=== PATIENT | male | born 1960 | race Caucasian/White ===

== ENCOUNTER 2019-08-09 20:42 | Inpatient (IN) | payer OTHER ==
--- NOTE | 2019-08-09 21:47 | PDOC ---
History of Present Illness - History of Present Illness Initial Comments: 08/09/19 22:12 HPI: 59 y/o M with hx of HTN, DM, cirrhosis (?ECHEVERRIA; according to patient it is due to fatty liver) presenting with 3 episodes of hematemesis that started 1hour prior to presentation. Patient stateshe was feeling abdominal discomfort and bloating but was able to tolerate dinner. After dinner, however, he had further discomfort and had 3 consecutive hematemesis episodes of large volume bright red blood without clots. He noted his dinner content also came up. He also reports sharp epigastric abd pain that radiates to the rest of his abdomen. He reports ALVES and LH following the hematemesis and his family reports he appears pale. He reports never having hematemesis before, but did receive extensive workup for his cirrhosis last year with Dr Chapman at [facility]. He denies any chest pain, SOB, syncope. Dr Chapman was contacted and we were notified that patient is MELD 6 and was recommended for transplant. He also states at the time of the EGD in 12/2017 there were 3 columns of nonbleeding and stable varices. Patient then missed several appointments and was lost to followup. Patient reports insurance issues PMHx: as noted above ROS: as noted SHx: Denies tobacco use; no alcohol use; no rec drugs Allergies: NKDA ROS: GENERAL/CONSTITUTIONAL: No fever or chills. +generalized weakness. HEAD, EYES, EARS, NOSE AND THROAT: No change in vision. No ear pain or discharge. No sore throat. CARDIOVASCULAR: No chest pain or shortness of breath RESPIRATORY: No cough, wheezing, or hemoptysis. GASTROINTESTINAL: +nausea and hematemesis; no diarrhea or constipation. GENITOURINARY: No dysuria, frequency, or change in urination. MUSCULOSKELETAL: No joint or muscle swelling or pain. No neck or back pain. SKIN: No rash NEUROLOGIC: +headache; no vertigo, loss of consciousness, or change in strength/ sensation. ENDOCRINE: No increased thirst. No abnormal weight change HEMATOLOGIC/LYMPHATIC: No anemia, easy bleeding, or history of blood clots. ALLERGIC/IMMUNOLOGIC: No hives or skin allergy. PE: GENERAL: Awake, alert, and fully oriented, moderate acute distress HEAD: No signs of trauma, normocephalic, atraumatic EYES: EOMI, scleral icterus, conjunctival pallor ENT: Auricles normal inspection, hearing grossly normal, nares patent, oropharynx clear without exudates. Moist mucosa. Sublingual jaundice NECK: Normal ROM, no lymphadenopathy LUNGS: No increased work of breathing, symmetrical chest rise, clear to auscultation bilaterally, no wheezes, crackles or rhonchi HEART: tachycardic and regular rhythm, normal S1 and S2, no murmurs, peripheral pulses 2+ and equal bilaterally. ABDOMEN: Soft, distended and protuberant abdomen w/ +fluid wave, generalized ttp with most focal in epigastrium with guarding, normoactive bowel sounds. No rebound. No masses. No CVAT EXTREMITIES: Normal inspection, Normal range of motion, no edema. No clubbing or cyanosis. NEUROLOGICAL: Cranial nerves II through XII grossly intact. Normal speech, normal gait, no focal sensorimotor deficits SKIN: jaundice and pallor <Yanely Dominique - Last Filed: 08/10/19 00:36> <Arlene Trejo - Last Filed: 08/19/19 02:51> - General Chief Complaint: Vomiting Blood Stated Complaint: VOMITING BLOOD Time Seen by Provider: 08/09/19 20:51 Past History - Past Medical History Anemia: Yes COPD: No Diabetes: Yes HTN: Yes Other medical history: Cirrhosis - Immunization History Immunization Up to Date: Yes - Psycho Social/Smoking Cessation Hx Smoking History: Never smoked Information on smoking cessation initiated: No Hx Alcohol Use: No Drug/Substance Use Hx: No <Yanely Dominique - Last Filed: 08/10/19 00:36> <Arlene Trejo - Last Filed: 08/19/19 02:51> - Past Medical History Allergies/Adverse Reactions: Allergies Allergy/AdvReac Type Severity Reaction Status Date / Time No Known Allergies Allergy Verified 08/09/19 21:48 *Physical Exam - Vital Signs Last Vital Signs Temp Pulse Resp BP Pulse Ox 98.7 F 104 H 20 103/72 97 08/09/19 21:04 08/09/19 21:04 08/09/19 21:04 08/09/19 21:04 08/09/19 21:04 <Yanely Dominique - Last Filed: 08/10/19 00:36> - Vital Signs Last Vital Signs Temp Pulse Resp BP Pulse Ox 98.4 F 73 20 109/74 95 08/15/19 14:00 08/15/19 14:00 08/15/19 14:00 08/15/19 14:00 08/12/19 21:00 <Arlene Trejo - Last Filed: 08/19/19 02:51> ED Treatment Course - LABORATORY CBC & Chemistry Diagram: 08/09/19 21:45 08/09/19 21:45 - RADIOLOGY Radiology Studies Ordered: Category Date Time Status CXRPORT [CHEST X-RAY PORTABLE*] [RAD] Stat Radiology 08/09/19 21:24 Ordered <Yanely Dominique - Last Filed: 08/10/19 00:36> - LABORATORY CBC & Chemistry Diagram: 08/15/19 07:07 08/15/19 07:07 - ADDITIONAL ORDERS Additional order review: 08/09/19 08/09/19 23:18 21:45 RBC 3.63 L MCV 68.8 L MCHC 29.2 L RDW 18.8 H MPV 9.6 Neutrophils % 78.3 Lymphocytes % 13.5 Monocytes % 7.1 Eosinophils % 0.5 Basophils % 0.6 POC Glucometer 244 - Medications Given in the ED: ED Medications Discontinued Medications Generic Name Dose Route Start Last Admin Trade Name Freq PRN Reason Stop Dose Admin Octreotide Acetate 200 mcg/ 500 mls @ 20.833 mls/hr 08/09/19 23:00 08/10/19 22:57 Octreotide Acetate 1,000 mcg/ IVPB 20.833 mls/hr Dextrose ASDIR SHADI Administration Lactated Ringer's 1,000 ml in 1,000 mls @ 125 mls/hr 08/09/19 23:45 08/11/19 00:03 Lactated Ringers Solution IV 125 mls/hr ASDIR SHADI Administration Propofol 1,000,000 mcg in 100 mls @ 4.899 mls/hr 08/10/19 02:30 08/10/19 14: 00 Diprivan - IVPB 0 mcg/kg/min TITR SHADI 0 mls/hr Titration Protocol 10 MCG/KG/MIN Dextrose/Lactated Ringer's 1,000 mls @ 42 mls/hr 08/10/19 02:45 08/10/19 03: 21 D5-Lr - IV Not Given ASDIR SHADI Ceftriaxone Sodium 1 gm/ 50 mls @ 100 mls/hr 08/10/19 08:00 08/11/19 10:42 Dextrose IVPB 100 mls/hr DAILY SHADI Administration Protocol Ceftriaxone Sodium 1 gm/ 50 mls @ 100 mls/hr 08/12/19 10:00 08/14/19 10:22 Dextrose IVPB 100 mls/hr DAILY SHADI Administration Protocol Lactated Ringer's 1,000 ml in 1,000 mls @ 125 mls/hr 08/11/19 15:00 08/13/19 06:26 Lactated Ringers Solution IV 125 mls/hr ASDIR SHADI Administration Octreotide Acetate 200 mcg/ 500 mls @ 20.833 mls/hr 08/11/19 16:30 08/13/19 17:46 Octreotide Acetate 1,000 mcg/ IVPB 20.833 mls/hr Dextrose ASDIR SHADI Administration Magnesium Sulfate/Dextrose 1 gm 08/10/19 08:30 08/10/19 09:23 Magnesium 1gm/D5w - IVPB 08/10/19 08:31 1 gm ONCE ONE Administration Octreotide Acetate 50 mcg 08/09/19 22:48 08/09/19 23:47 Sandostatin - IVPUSH 08/09/19 22:49 50 mcg ONCE ONE Administration Ondansetron HCl 4 mg 08/09/19 22:03 08/09/19 22:14 Zofran Injection IVPUSH 08/09/19 22:04 4 mg ONCE ONE Administration Ondansetron HCl 4 mg 08/10/19 14:43 08/10/19 16:45 Zofran Injection IVPUSH 08/10/19 14:44 4 mg ONCE ONE Administration Pantoprazole Sodium 40 mg 08/09/19 22:42 08/09/19 23:28 Protonix Iv IVPUSH 08/09/19 22:43 40 mg ONCE ONE Administration Pantoprazole Sodium 40 mg 08/10/19 10:00 08/11/19 10:44 Protonix Iv IVPUSH 40 mg BID SHADI Administration Pantoprazole Sodium 40 mg 08/11/19 22:00 08/15/19 10:31 Protonix Iv IVPUSH 40 mg BID SHADI Administration Phytonadione 10 mg 08/11/19 17:17 08/11/19 18:48 Aqua Mephyton Injection - IVPB 08/11/19 17:18 10 mg ONCE ONE Administration Potassium Chloride 40 meq 08/14/19 10:30 08/14/19 12:14 Potassium Chloride Oral Liquid PO 08/14/19 10:31 40 meq ONCE ONE Administration Zolpidem Tartrate 5 mg 08/14/19 00:32 08/14/19 00:51 Ambien - PO 08/14/19 00:33 5 mg ONCE ONE Administration Zolpidem Tartrate 5 mg 08/14/19 22:24 08/14/19 22:48 Ambien - PO 08/14/19 22:25 5 mg ONCE ONE Administration <Arlene Trejo - Last Filed: 08/19/19 02:51> Medical Decision Making - Medical Decision Making 08/10/19 00:30 59 y/o M with hx of HTN, DM, cirrhosis (?CEHEVERRIA; according to patient it is due to fatty liver) presenting with 3 episodes of hematemesis that started 1hour prior to presentation associated with abdominal pain and nausea. BP 103/72 HR 104, AF. PE notable for jaundice, conjunctival pallor, epigastric tenderness -cbc, cmp, coags, t&s, ammonia, lipase, ekg, cxr -protonix 40mg, octreotide 50mcg, octreotide drip, 1L LR, zofran 08/10/19 00:36 Hb 7.3, plt 82, INR 1.37, hemoccult positive ekg: nsr cxr: no acute pathology will transfuse 2 units pRBC consulted GI Dr Gar for emergent EGD for active bleeding 08/10/19 00:37 GI team, anesthesia, and OR mobilized Patient admitted to ICU under Dr Ibarra; ICU team accepted patient Family made aware and in agreement with plan; all questions answered <Yanely Dominique - Last Filed: 08/10/19 00:36> Discharge - Discharge Information Problems reviewed: Yes - Admission Yes <Yanely Dominique - Last Filed: 08/10/19 00:36> <Arlene Trejo - Last Filed: 08/19/19 02:51> - Discharge Information Clinical Impression/Diagnosis: Esophageal varix bleeding Qualifiers: Esophageal varices type: secondary Qualified Code(s): I85.11 - Secondary esophageal varices with bleeding Abdominal pain Qualifiers: Abdominal location: epigastric Qualified Code(s): R10.13 - Epigastric pain Condition: Stable Disposition: HOME
[2019-08-09] MEDS ORDERED: ONDANSETRON 4 MG/2 ML VIAL IVPUSH ONE (22:03)
[2019-08-09] MEDS ORDERED: ONDANSETRON 4 MG/2 ML VIAL ONE (22:07)
[2019-08-09 22:23] LABS: INR 1.37 (0.83-1.09); PROTHROMBIN TIME (PATIENT) 16.2 SEC (9.7-13.0)
[2019-08-09 22:30] LABS: MAGNESIUM 1.5 mg/dL (1.8-2.4)
[2019-08-09 22:38] LABS: ALBUMIN 3.3 g/dl (3.4-5.0); BILIRUBIN,TOTAL 0.6 mg/dL (0.2-1); CALCIUM 8.5 mg/dL (8.5-10.1); CREATININE 1.1 mg/dL (0.55-1.3); POTASSIUM 4.4 mmol/L (3.5-5.1)
[2019-08-09] MEDS ORDERED: PANTOPRAZOLE SODIUM 40 MG VIAL IVPUSH ONE (22:42)
[2019-08-09 22:44] LABS: BASO % 0.6 % (0-2.0); EOS % 0.5 % (0-4.5); HEMOGLOBIN 7.3 GM/dL (11.7-16.9); LYMPH % 13.5 % (8-40); MCH 20.1 pg (25.7-33.7); MCHC 29.2 g/dl (32.0-35.9); MEAN CELL VOLUME 68.8 fl (80-96); MEAN PLT VOLUME 9.6 fl (7.5-11.1); MONO % 7.1 % (3.8-10.2); NEUT % 78.3 % (42.8-82.8); PLATELET COUNT 82 K/MM3 (134-434); RBC 3.63 M/mm3 (4.00-5.60); RDW 18.8 % (11.9-15.9); WHITE BLOOD COUNT 7.6 K/mm3 (4.0-10.0)
[2019-08-09] MEDS ORDERED: OCTREOTIDE ACETATE 50 MCG/1 ML - 1 ML VIAL IVPUSH ONE (22:48)
[2019-08-09] MEDS ORDERED: PANTOPRAZOLE SODIUM 40 MG VIAL ONE (23:22)
--- NOTE | 2019-08-09 23:29 | PDOC ---
Documentation entered by Ernestina Nation SCRIBE, acting as scribe for Arlene Trejo MD. Arlene Trejo MD: This documentation has been prepared by the sheribe, Ernestina Nation SCRIBE, under my direction and personally reviewed by me in its entirety. I confirm that the documentation accurately reflects all work, treatment, procedures, and medical decision making performed by me. Attending Attestation - Resident Resident Name: TripYanely luz - ED Attending Attestation I have performed the following: I have examined & evaluated the patient, The case was reviewed & discussed with the resident, I agree w/resident's findings & plan, Exceptions are as noted - HPI HPI: 08/09/19 21:23 59 yo male BIBA after 3 episodes of hematemesis one hour prior to arrival. He had some epigastric pain , belching and nausea. - Physicial Exam PE: 08/09/19 21:26 59 yo male appearing pale BIBA after vomiting blood head ncat conjunctiva pale neck supple lungs cta b/l cvs tachycardia abd no rebound,+fluid wave skin warm and dry neuro axox3 08/09/19 22:44 08/09/19 23:10 - Medical Decision Making 08/09/19 23:14 59-year-old male presents after 3 episodes of hematemesis He has a history of cirrhosis, prior GI bleeds with transfusions and is followed by Dr. Leiva at [facility] We did speak to Dr. Leiva his GI doctor and he recommended that we speak to our GI specialist propulsion motor and generator repairer this evening We did speak to Dr. Darin Gar and he will see the patient this evening for endoscopy Patient will require blood transfusions, PPI, octreotide infusion 08/09/19 23:28
[2019-08-09 23:31] LABS: ANISOCYTOSIS 1+; PLATELET ESTIMATE DECREASED
[2019-08-09] MEDS ORDERED: OCTREOTIDE ACETATE 100 MCG/1 ML ONE (23:33)
[2019-08-10] MEDS: LACTATED RINGERS SOLUTION 1,000 ML/1,000 ML INFUS.BAG IV SCH ×2 (00:02→06:10)
[2019-08-10] MEDS: OCTREOTIDE ACETATE 200 MCG, OCTREOTIDE ACETATE 1,000 MCG in DEXTROSE 5%-WATER - 496 ML IVPB SCH ×2 (00:20→22:57)
[2019-08-10] MEDS ORDERED: EPINEPHrine 1:10,000 (P-F SYR) 1 MG/10 ML DISP.SYRIN ONE (00:31)
[2019-08-10] MEDS ORDERED: ROCURONIUM BROMIDE 50 MG/5 ML VIAL ONE (00:32)
[2019-08-10] MEDS ORDERED: fentaNYL CITRATE 250 MCG/5 ML VIAL ONE (00:32)
[2019-08-10] MEDS ORDERED: MIDAZOLAM HCL 2 MG/2 ML SINGLE DOSE VIAL ONE ×2 (00:32)
[2019-08-10] MEDS ORDERED: PROPOFOL 2,000,000 MCG/200 ML VIAL ONE (01:59)
--- NOTE | 2019-08-10 02:22 | HP ---
Admitting History and Physical - Primary Care Physician PCP: Dr. Ibarra - Admission Chief Complaint: voimting blood History of Present Illness: 59 year old male with PMHX of HTN, DM, cirrhosis 2/2 ECHEVERRIA, according to ED presenting with 3 episodes of hematemesis that started 1hour prior to arrival. Patient was feeling abdominal discomfort and bloating but was able to tolerate dinner. After dinner, however, further discomfort and had 3 consecutive hematemesis episodes of large volume bright red blood without clots. Patient reported sharp epigastric abdominal pain that radiates to the rest of his abdomen, vomiting. Patient reported ALVES and lightheadedness after hematemesis. Patient denied any chest pain, SOB, syncope. Patient reports never having hematemesis before, but did receive extensive workup for his cirrhosis last year with Dr Chapman at [facility]. Dr Chapman contacted in ED and we were notified that patient is MELD 6 and was recommended for transplant. He also states at the time of the EGD in 12/2017 there were 3 columns of nonbleeding and stable varices. Patient then missed several appointments and was lost to followup. Patient reports insurance issues - Smoking History Smoking history: Never smoked - Alcohol/Substance Use Hx Alcohol Use: No Home Medications - Allergies Allergies/Adverse Reactions: Allergies Allergy/AdvReac Type Severity Reaction Status Date / Time No Known Allergies Allergy Verified 08/09/19 21:48 Family Medical History Family History: Unable to Obtain (patient intubated/sedated upon exam s/p emergent EGD ) Review of Systems Unable to obtain ROS, reason: patient intubated/sedated Physical Examination Vital Signs: Vital Signs Temperature 98.7 F 08/09/19 21:04 Pulse Rate 94 H 08/09/19 23:40 Respiratory Rate 08/10/19 01:56 Blood Pressure 108/68 08/09/19 23:40 O2 Sat by Pulse Oximetry (%) 97 08/09/19 23:40 Constitutional: Yes: Obese HENT: Yes: Atraumatic, Normocephalic, Other (intubated, sedated) Neck: Yes: Supple, Trachea Midline Cardiovascular: Yes: S1, S2 Respiratory: Yes: Regular, CTA Bilaterally Gastrointestinal: Yes: Normal Bowel Sounds, Soft, Abdomen, Obese Musculoskeletal: Yes: WNL Neurological: Yes: Other (sedated) Labs: CBC, BMP 08/09/19 21:45 08/09/19 21:45 Imaging - Results Chest X-ray: Report Reviewed (cxr: no acute pathology) Problem List - Problems (1) Esophageal varix bleeding Code(s): I85.01 - ESOPHAGEAL VARICES WITH BLEEDING Qualifiers: Esophageal varices type: secondary Qualified Code(s): I85.11 - Secondary esophageal varices with bleeding (2) Abdominal pain Code(s): R10.9 - UNSPECIFIED ABDOMINAL PAIN Qualifiers: Abdominal location: epigastric Qualified Code(s): R10.13 - Epigastric pain Assessment/Plan 59 year old male with PMHX of HTN, DM, cirrhosis, according to ED presenting with 3 episodes of hematemesis large volume bright red blood without clots and sharp epigastric abdominal pain that radiates to the rest of his abdomen Per [facility]. Dr Chapman patient MELD 6 and was recommended for transplant. EGD in 12/2017 there were 3 columns of nonbleeding and stable varices. Patient then missed several appointments and was lost to followup. Patient examined in ICU intubated and sedated s/p EGD and clipping of some varices, will remain in ICU pending repeat EGD in AM # Esophageal Varices bleeding # Anemia - Hgb:7.3, INR: 1.3 - occult blood positive - In ED protonix 40mg, octreotide 50mcg, octreotide drip, 1L LR, zofran - See by Dr. kim for emergent EGD, multiple bands placed along distal esophagus - EGD shows: Esophageal variceal bleeding - s/p intubation/sedation; post procedure to prevent aspiration - continue with LR IVF - continue with PPI and Octreotide drip - continue with pRbc 2 unit - follow up repeat cbc in AM - Transfuse for Hgb<7 - will need repeat EGD in AM - consider ceftriaxone abx for SBP/PPX # HTN - monitor BP - continue with IVF # DM - monitor BGM - coverage with Novolog sliding scale DIET: NPO VTE: SCD Visit type - Emergency Visit Emergency Visit: Yes ED Registration Date: 08/10/19 Care time: The patient presented to the Emergency Department on the above date and was hospitalized for further evaluation of their emergent condition. - New Patient This patient is new to me today: Yes Date on this admission: 08/10/19 - Critical Care Critical Care patient: Yes Total Critical Care Time (in minutes): 35 Critical Care Statement: The care of this patient involved high complexity decision making to prevent further life threatening deterioration of the patient 's condition and/or to evaluate & treat vital organ system(s) failure or risk of failure.
--- NOTE | 2019-08-10 02:40 | CONSULT ---
Consult Consult Specialty:: Pulm/CCM Reason for Consultation:: Variceal bleed with anemia, intubated for EGD - History of Present Illness Chief Complaint: Intubated and sedated History of Present Illness: 59 y/o M with hx of HTN, DM, cirrhosis2/2 ECHEVERRIA who presented to the ED with c/o 3 episodes of hematemesis that started 1hour prior to presentation to the ED. He is now intubated and sedated s/p EGD and banding of some varices. Pt is transferred to ICU and is to remain intubated for repeat EGD in am. Briefly as per previous report pt received extensive workup for his cirrhosis last year with Dr Chapman at [facility]. He had a MELD score of 6 and was recommended for transplant. EGD in 12/2017 was s/f 3 columns of nonbleeding and stable varices. He was lost to follow-up and had insurance issues. Patient reported 3 episodes of large volume hematemesis with bright red blood, with sharp radiating epigastric pain. He reported ALVES and lightheadedness after hematemesis but denied chest pain, syncope, SOB. this is his first episode of hematemesis. In the OR EGD and banding was limited by extensive food and blood in the stomach that kept refluxing up. Pt received 1uPRBC and 500cc LR. In ICU rec'd orally intubated and sedated to RASS-4. Abdomen was grossly distended, firm and dull to percussion. 2nd unit PRBC given. Maintained on LR 125cc/h. Started Propofol for vent synchrony. Updated using an annealing furnace tender. - History Source History Provided By: Medical Record Limitations to Obtaining History: Intubated - Past Medical History Cardio/Vascular: Yes: HTN Gastrointestinal: Yes: Esophageal Varices Hepatobiliary: Yes: Cirrhosis Heme/Onc: Yes: Anemia - Alcohol/Substance Use Hx Alcohol Use: No - Smoking History Smoking history: Never smoked - Social History Usual Living Arrangement: With Spouse Home Medications - Allergies Allergies/Adverse Reactions: Allergies Allergy/AdvReac Type Severity Reaction Status Date / Time No Known Allergies Allergy Verified 08/09/19 21:48 Family Medical History Family History: Unable to Obtain Review of Systems Unable to obtain ROS, reason: intubated and sedated Physical Exam Vital Signs: Vital Signs Temperature 98.7 F 08/09/19 21:04 Pulse Rate 94 H 08/09/19 23:40 Respiratory Rate 19 08/10/19 01:56 Blood Pressure 108/68 08/09/19 23:40 O2 Sat by Pulse Oximetry (%) 97 08/09/19 23:40 Constitutional: Yes: Well Nourished, No Distress, Calm Eyes: Yes: WNL, Conjunctiva Clear, PERRL HENT: Yes: Atraumatic, Normocephalic Neck: Yes: WNL, Supple, Trachea Midline Cardiovascular: Yes: Regular Rate and Rhythm, S1, S2 Respiratory: Yes: Regular, Intubated, Mechanically Ventilated, Rhonchi Gastrointestinal: Yes: Abdomen, Obese, Ascites, Distention, Hypoactive Bowel Sounds, Other (Dull) ...Rectal Exam: Yes: Deferred Renal/: Yes: Guzman Present Musculoskeletal: Yes: WNL Extremities: Yes: WNL Edema: No Peripheral Pulses WNL: Yes Neurological: Yes: Other (Sedated) Labs: CBC, BMP 08/09/19 21:45 08/09/19 21:45 Problem List - Problems (1) Abdominal pain Code(s): R10.9 - UNSPECIFIED ABDOMINAL PAIN Qualifiers: Abdominal location: epigastric Qualified Code(s): R10.13 - Epigastric pain (2) Esophageal varix bleeding Code(s): I85.01 - ESOPHAGEAL VARICES WITH BLEEDING Qualifiers: Esophageal varices type: secondary Qualified Code(s): I85.11 - Secondary esophageal varices with bleeding (3) Anemia Code(s): D64.9 - ANEMIA, UNSPECIFIED (4) Endotracheally intubated Code(s): Z97.8 - PRESENCE OF OTHER SPECIFIED DEVICES (5) Hematemesis Code(s): K92.0 - HEMATEMESIS Assessment/Plan 59 y/o M with hx of HTN, DM, cirrhosis 2/2 ECHEVERRIA c/b esophageal varices and ascites and now variceal bleed. He is now intubated and sedated s/p EGD and clipping of some varices. Pt is transferred to ICU and is to remain intubated for repeat EGD in am. Plan: GI/Heme: GI following; plan for repeat EGD in OR in am Maintain large bore IV access Cont octreotide drip Cont pantoprazole BID NPO Serial CBC Transfuse for Hgb<7, Plts<50 ID: f/u cultures Ceftriaxone for SBP prophylaxis Pulm: LTVV CXR Propofol drip for vent synchrony Aspiration precautions Pulm toilet CV: HD monitoring Cont IVF Hold antiHTN Endo: DM Fingersticks q6 Insulin sliding scale Proph: SCD/PPI Dionne Chirinos,ACNP Pulm/CCM [employer] 40mins
[2019-08-10] MEDS ORDERED: DEXTROSE 5%-LACTATED RINGERS 1,000 ML IV SCH (02:45)
[2019-08-10] MEDS: PROPOFOL 1,000,000 MCG/100 ML VIAL IVPB SCH ×2 (03:20→06:15)
[2019-08-10 06:58] LABS: HEMATOCRIT 28.2 % (35.4-49); HEMOGLOBIN 8.8 GM/dL (11.7-16.9); MCH 22.6 pg (25.7-33.7); MCHC 31.3 g/dl (32.0-35.9); MEAN CELL VOLUME 72.2 fl (80-96); MEAN PLT VOLUME 9.9 fl (7.5-11.1); PLATELET COUNT 81 K/MM3 (134-434); RBC 3.91 M/mm3 (4.00-5.60); RDW 20.8 % (11.9-15.9); WHITE BLOOD COUNT 8.4 K/mm3 (4.0-10.0)
[2019-08-10] MEDS ORDERED: INSULIN SLIDING SCALE (NOVOLOG) 1 VIAL SQ SCH (07:00)
[2019-08-10 07:33] LABS: INR 1.37 (0.83-1.09); PROTHROMBIN TIME (PATIENT) 16.2 SEC (9.7-13.0)
[2019-08-10 07:36] LABS: ACTIVATED PTT 33.5 SECONDS (25.2-36.5)
[2019-08-10] MEDS ORDERED: cefTRIAXone SODIUM 1 GM VIAL ONE ×2 (07:36→09:22)
[2019-08-10] MEDS: CEFTRIAXONE 1 GM in DEXTROSE 5%-WATER - 50 ML IVPB SCH (07:36)
[2019-08-10] MEDS ORDERED: DEXTROSE 5%-WATER - 50 ML IVPB ONE ×2 (07:36→09:22)
[2019-08-10 07:37] LABS: BILIRUBIN,TOTAL 1.5 mg/dL (0.2-1); BLOOD UREA NITROGEN 23.2 mg/dL (7-18); CALCIUM 7.8 mg/dL (8.5-10.1); CREATININE 1.3 mg/dL (0.55-1.3); MAGNESIUM 1.6 mg/dL (1.8-2.4); TOT PROT 6.6 g/dl (6.4-8.2)
[2019-08-10 08:10] LABS: URINE APPEARANCE CLEAR; URINE BILIRUBIN NEGATIVE (NEGATIVE); URINE COLOR YELLOW; URINE GLUCOSE (UA) 3+ (NEGATIVE); URINE KETONE 1+ (NEGATIVE); URINE LEUK ESTERASE NEGATIVE (NEGATIVE); URINE NITRITE NEGATIVE (NEGATIVE); URINE PROTEIN TRACE (NEGATIVE); URINE UROBILINOGEN 0.2 mg/dL (0.2-1.0)
[2019-08-10] MEDS ORDERED: MAGNESIUM 1GM/D5W 100ML - 100 ML IVPB IVPB ONE (08:30)
[2019-08-10 08:57] LABS: POTASSIUM 6.6 mmol/L (3.5-5.1)
--- NOTE | 2019-08-10 08:59 | PN.GI ---
GI Progress Note Subjective: Follow for hematemesis, EGD with banding yesterday. Presently intubated and sedated. NO melena or GI output since arrival in MICU. No hematemesis. No tachycardia or hypotension. - Objective Vital Signs: Vital Signs Temperature 98.6 F 08/10/19 06:00 Pulse Rate 90 08/10/19 06:00 Respiratory Rate 14 08/10/19 06:00 Blood Pressure 108/52 L 08/10/19 06:00 O2 Sat by Pulse Oximetry (%) 100 08/10/19 03:09 Gastrointestinal Inspection: Yes: Distention ...Auscultate: Yes: Normoactive Bowel Sounds ...Palpate: Yes: Soft. No: Hepatomegaly, Mass Labs: CBC, BMP 08/10/19 06:25 08/10/19 06:25 INR, PTT INR 1.37 (0.83-1.09) H 08/10/19 06:25 Assessment/Plan Probable variceal bleed with EBL last night and continues on Octreotide drip. No eveidence of rebleeding at this time with stable VSs, no melena or GI output either from above or below. Hemoblobin 8.8. Plan:Continue with Octerotide drip. Continue NPO for now. Repeat EGD. 2 large bore IVs. Keep hemoglobin 7-9. Do not overtransfuse.
[2019-08-10] MEDS: PANTOPRAZOLE SODIUM 40 MG VIAL IVPUSH SCH ×2 (09:23→22:57)
--- NOTE | 2019-08-10 10:03 | EKG ---
Test Reason : Blood Pressure : / mmHG Vent. Rate : 095 BPM Atrial Rate : 095 BPM P-R Int : 168 ms QRS Dur : 076 ms QT Int : 376 ms P-R-T Axes : 033 022 039 degrees QTc Int : 472 ms NORMAL SINUS RHYTHM NORMAL ECG NO PREVIOUS ECGS AVAILABLE Confirmed by ARISTIDES PARISH MD ([id number]) on 08/10/2019 10:02:32 AM Referred By: Confirmed By:ARISTIDES PARISH MD
[2019-08-10] MEDS ORDERED: KCL 10 MEQ IVPB 10 MEQ/100 ML INFUS.BAG IVPB SCH (11:00)
[2019-08-10 12:02] LABS: BLOOD UREA NITROGEN 23.4 mg/dL (7-18); CREATININE 1.1 mg/dL (0.55-1.3); POTASSIUM 4.6 mmol/L (3.5-5.1)
--- NOTE | 2019-08-10 12:23 | PN ---
Progress Note, Physician Chief Complaint: patient seen and examined intubated sedated to go for EGD today repeat labs pending - Current Medication List Current Medications: Active Medications Octreotide Acetate 200 mcg/Octreotide Acetate 1,000 mcg/Dextrose 500 mls @ 20.833 mls/hr IVPB ASDIR SHADI Last Admin: 08/10/19 00:20 Dose: 20.833 mls/hr Lactated Ringer's (Lactated Ringers Solution) 1,000 ml in 1,000 mls @ 125 mls/ hr IV ASDIR SHADI Last Admin: 08/10/19 06:10 Dose: 125 mls/hr Propofol (Diprivan -) 1,000,000 mcg in 100 mls @ 4.899 mls/hr IVPB TITR SHADI; Protocol Last Admin: 08/10/19 06:15 Dose: 40 mcg/kg/min, 19.595 mls/hr Ceftriaxone Sodium 1 gm/ (Dextrose) 50 mls @ 100 mls/hr IVPB DAILY SHADI; Protocol Last Admin: 08/10/19 07:36 Dose: 100 mls/hr Pantoprazole Sodium (Protonix Iv) 40 mg IVPUSH BID SHADI Last Admin: 08/10/19 09:23 Dose: 40 mg - Objective Vital Signs: Vital Signs Temperature 97.9 F 08/10/19 10:00 Pulse Rate 89 08/10/19 10:00 Respiratory Rate 16 08/10/19 10:00 Blood Pressure 109/79 08/10/19 10:00 O2 Sat by Pulse Oximetry (%) 100 08/10/19 03:09 Constitutional: Yes: Calm Neck: Yes: Other (intubated sedated) Cardiovascular: Yes: Regular Rate and Rhythm, S1, S2 Respiratory: Yes: Diminished, Mechanically Ventilated Gastrointestinal: Yes: Normal Bowel Sounds, Soft Labs: CBC, BMP 08/10/19 06:25 08/10/19 11:15 INR, PTT INR 1.37 (0.83-1.09) H 08/10/19 06:25 Problem List - Problems (1) Anemia Assessment/Plan: s/p prbc h/h impropved Code(s): D64.9 - ANEMIA, UNSPECIFIED (2) Esophageal varix bleeding Assessment/Plan: s/p banding octreotide drip repeat EGD today Code(s): I85.01 - ESOPHAGEAL VARICES WITH BLEEDING Qualifiers: Esophageal varices type: secondary Qualified Code(s): I85.11 - Secondary esophageal varices with bleeding (3) Hematemesis Assessment/Plan: octreotide drip monitor h/h Code(s): K92.0 - HEMATEMESIS (4) Hypomagnesemia Assessment/Plan: iv magnesium recheck labs Code(s): E83.42 - HYPOMAGNESEMIA
--- NOTE | 2019-08-10 12:38 | PN ---
Teaching Attending Note Name of Resident: Jalen Bang ATTENDING PHYSICIAN STATEMENT I saw and evaluated the patient. I reviewed the resident's note and discussed the case with the resident. I agree with the resident's findings and plan as documented. SUBJECTIVE: Patient seen and examined in the ICU. Intubated and sedated. AC Mode of vent. No pressors. Intake & Output 08/07/19 08/08/19 08/09/19 08/10/19 23:59 23:59 23:59 23:59 Intake Total 1284 Output Total 100 Balance 1184 Weight 180 lb 200 lb 6 oz Last Vital Signs Temp Pulse Resp BP Pulse Ox 97.9 F 91 H 15 115/83 100 08/10/19 10:00 08/10/19 12:00 08/10/19 12:00 08/10/19 12:00 08/10/19 03:09 Active Medications Octreotide Acetate 200 mcg/Octreotide Acetate 1,000 mcg/Dextrose 500 mls @ 20.833 mls/hr IVPB ASDIR SHADI Last Admin: 08/10/19 00:20 Dose: 20.833 mls/hr Lactated Ringer's (Lactated Ringers Solution) 1,000 ml in 1,000 mls @ 125 mls/ hr IV ASDIR SHADI Last Admin: 08/10/19 06:10 Dose: 125 mls/hr Propofol (Diprivan -) 1,000,000 mcg in 100 mls @ 4.899 mls/hr IVPB TITR SHADI; Protocol Last Admin: 08/10/19 06:15 Dose: 40 mcg/kg/min, 19.595 mls/hr Ceftriaxone Sodium 1 gm/ (Dextrose) 50 mls @ 100 mls/hr IVPB DAILY SHADI; Protocol Last Admin: 08/10/19 07:36 Dose: 100 mls/hr Pantoprazole Sodium (Protonix Iv) 40 mg IVPUSH BID SHADI Last Admin: 08/10/19 09:23 Dose: 40 mg Constitutional: Yes: Intubated and sedated Eyes: Yes: WNL, Conjunctiva Clear, PERRL HENT: Yes: Atraumatic, Normocephalic Neck: Yes: WNL, Supple, Trachea Midline Cardiovascular: Yes: Regular Rate and Rhythm, S1, S2 Respiratory: Yes: Intubated, Mechanically Ventilated, clear Gastrointestinal: Yes: Abdomen, Obese, Ascites, Distention, Hypoactive Bowel Sounds ...Rectal Exam: Yes: Deferred Renal/: Yes: Guzman Present Musculoskeletal: Yes: WNL Extremities: Yes: WNL Edema: No Peripheral Pulses WNL: Yes Neurological: Yes: Sedated Labs: Laboratory Results - last 24 hr 08/09/19 08/09/19 08/09/19 21:45 21:45 21:45 WBC 7.6 RBC 3.63 L Hgb 7.3 L Hct 25.0 L MCV 68.8 L MCH 20.1 L MCHC 29.2 L RDW 18.8 H Plt Count 82 L MPV 9.6 Absolute Neuts (auto) 6.0 Neutrophils % 78.3 Lymphocytes % 13.5 Monocytes % 7.1 Eosinophils % 0.5 Basophils % 0.6 Nucleated RBC % 0 Hypochromia 2+ Platelet Estimate Decreased Platelet Comment No clumping noted Anisocytosis 1+ PT with INR INR PTT (Actin FS) 26.8 Sodium Potassium Chloride Carbon Dioxide Anion Gap BUN Creatinine Est GFR (CKD-EPI)AfAm Est GFR (CKD-EPI)NonAf POC Glucometer Random Glucose Calcium Phosphorus Magnesium Total Bilirubin AST ALT Alkaline Phosphatase Ammonia 28.20 Creatine Kinase Troponin I Total Protein Albumin Lipase Urine Color Urine Appearance Urine pH Ur Specific [place] Urine Protein Urine Glucose (UA) Urine Ketones Urine Blood Urine Nitrite Urine Bilirubin Urine Urobilinogen Ur Leukocyte Esterase Stool Occult Blood Anti-A Titer Blood Type Antibody Screen Crossmatch 08/09/19 08/09/19 08/09/19 21:45 21:45 21:45 WBC RBC Hgb Hct MCV MCH MCHC RDW Plt Count MPV Absolute Neuts (auto) Neutrophils % Lymphocytes % Monocytes % Eosinophils % Basophils % Nucleated RBC % Hypochromia Platelet Estimate Platelet Comment Anisocytosis PT with INR INR PTT (Actin FS) Sodium 135 L Potassium 4.4 Chloride 104 Carbon Dioxide 21 Anion Gap 10 BUN 17.0 Creatinine 1.1 Est GFR (CKD-EPI)AfAm 85.31 Est GFR (CKD-EPI)NonAf 73.61 POC Glucometer Random Glucose 304 H Calcium 8.5 Phosphorus 2.6 Magnesium 1.5 L Total Bilirubin 0.6 AST 33 ALT 45 Alkaline Phosphatase 80 Ammonia Creatine Kinase 87 Troponin I 0.02 Total Protein 7.0 Albumin 3.3 L Lipase 142 Urine Color Urine Appearance Urine pH Ur Specific [place] Urine Protein Urine Glucose (UA) Urine Ketones Urine Blood Urine Nitrite Urine Bilirubin Urine Urobilinogen Ur Leukocyte Esterase Stool Occult Blood Anti-A Titer Blood Type Antibody Screen Crossmatch 08/09/19 08/09/19 08/09/19 21:45 21:45 21:45 WBC RBC Hgb Hct MCV MCH MCHC RDW Plt Count MPV Absolute Neuts (auto) Neutrophils % Lymphocytes % Monocytes % Eosinophils % Basophils % Nucleated RBC % Hypochromia Platelet Estimate Platelet Comment Anisocytosis PT with INR 16.20 H INR 1.37 H PTT (Actin FS) Sodium Potassium Chloride Carbon Dioxide Anion Gap BUN Creatinine Est GFR (CKD-EPI)AfAm Est GFR (CKD-EPI)NonAf POC Glucometer Random Glucose Calcium Phosphorus Magnesium Total Bilirubin AST ALT Alkaline Phosphatase Ammonia Creatine Kinase Troponin I Total Protein Albumin Lipase Urine Color Urine Appearance Urine pH Ur Specific [place] Urine Protein Urine Glucose (UA) Urine Ketones Urine Blood Urine Nitrite Urine Bilirubin Urine Urobilinogen Ur Leukocyte Esterase Stool Occult Blood Positive Anti-A Titer Cancelled Blood Type Cancelled Antibody Screen Cancelled Crossmatch 08/09/19 08/09/19 08/10/19 21:45 23:18 00:10 WBC RBC Hgb Hct MCV MCH MCHC RDW Plt Count MPV Absolute Neuts (auto) Neutrophils % Lymphocytes % Monocytes % Eosinophils % Basophils % Nucleated RBC % Hypochromia Platelet Estimate Platelet Comment Anisocytosis PT with INR INR PTT (Actin FS) Sodium Potassium Chloride Carbon Dioxide Anion Gap BUN Creatinine Est GFR (CKD-EPI)AfAm Est GFR (CKD-EPI)NonAf POC Glucometer 244 Random Glucose Calcium Phosphorus Magnesium Total Bilirubin AST ALT Alkaline Phosphatase Ammonia Creatine Kinase Troponin I Total Protein Albumin Lipase Urine Color Urine Appearance Urine pH Ur Specific [place] Urine Protein Urine Glucose (UA) Urine Ketones Urine Blood Urine Nitrite Urine Bilirubin Urine Urobilinogen Ur Leukocyte Esterase Stool Occult Blood Anti-A Titer Blood Type A POSITIVE A POSITIVE Antibody Screen Negative Negative Crossmatch See Detail 08/10/19 08/10/19 08/10/19 02:54 03:30 06:25 WBC RBC Hgb Hct MCV MCH MCHC RDW Plt Count MPV Absolute Neuts (auto) Neutrophils % Lymphocytes % Monocytes % Eosinophils % Basophils % Nucleated RBC % Hypochromia Platelet Estimate Platelet Comment Anisocytosis PT with INR INR PTT (Actin FS) Sodium Potassium Chloride Carbon Dioxide Anion Gap BUN Creatinine Est GFR (CKD-EPI)AfAm Est GFR (CKD-EPI)NonAf POC Glucometer 246 Random Glucose Calcium Phosphorus Magnesium Total Bilirubin AST ALT Alkaline Phosphatase Ammonia Creatine Kinase Troponin I Total Protein Albumin Lipase Urine Color Yellow Urine Appearance Clear Urine pH 5.0 Ur Specific [place] 1.036 H Urine Protein Trace Urine Glucose (UA) 3+ H Urine Ketones 1+ H Urine Blood Negative Urine Nitrite Negative Urine Bilirubin Negative Urine Urobilinogen 0.2 Ur Leukocyte Esterase Negative Stool Occult Blood Anti-A Titer Blood Type A POSITIVE Antibody Screen Crossmatch 08/10/19 08/10/19 08/10/19 06:25 06:25 06:25 WBC 8.4 RBC 3.91 L Hgb 8.8 L Hct 28.2 L MCV 72.2 L MCH 22.6 L MCHC 31.3 L RDW 20.8 H Plt Count 81 L MPV 9.9 Absolute Neuts (auto) Neutrophils % Lymphocytes % Monocytes % Eosinophils % Basophils % Nucleated RBC % Hypochromia Platelet Estimate Platelet Comment Anisocytosis PT with INR 16.20 H INR 1.37 H PTT (Actin FS) 33.5 Sodium 133 L Potassium 6.6 H* Chloride 104 Carbon Dioxide 19 L Anion Gap 10 BUN 23.2 H Creatinine 1.3 Est GFR (CKD-EPI)AfAm 69.71 Est GFR (CKD-EPI)NonAf 60.14 POC Glucometer Random Glucose 307 H Calcium 7.8 L Phosphorus 3.0 Magnesium 1.6 L Total Bilirubin 1.5 H AST 30 ALT 43 Alkaline Phosphatase 66 Ammonia Creatine Kinase Troponin I Total Protein 6.6 Albumin 3.0 L Lipase Urine Color Urine Appearance Urine pH Ur Specific [place] Urine Protein Urine Glucose (UA) Urine Ketones Urine Blood Urine Nitrite Urine Bilirubin Urine Urobilinogen Ur Leukocyte Esterase Stool Occult Blood Anti-A Titer Blood Type Antibody Screen Crossmatch 08/10/19 08/10/19 06:43 11:15 WBC RBC Hgb Hct MCV MCH MCHC RDW Plt Count MPV Absolute Neuts (auto) Neutrophils % Lymphocytes % Monocytes % Eosinophils % Basophils % Nucleated RBC % Hypochromia Platelet Estimate Platelet Comment Anisocytosis PT with INR INR PTT (Actin FS) Sodium 137 Potassium 4.6 Chloride 105 Carbon Dioxide 23 Anion Gap 8 BUN 23.4 H Creatinine 1.1 Est GFR (CKD-EPI)AfAm 85.31 Est GFR (CKD-EPI)NonAf 73.61 POC Glucometer 270 Random Glucose 265 H Calcium 8.0 L Phosphorus Magnesium Total Bilirubin AST ALT Alkaline Phosphatase Ammonia Creatine Kinase Troponin I Total Protein Albumin Lipase Urine Color Urine Appearance Urine pH Ur Specific [place] Urine Protein Urine Glucose (UA) Urine Ketones Urine Blood Urine Nitrite Urine Bilirubin Urine Urobilinogen Ur Leukocyte Esterase Stool Occult Blood Anti-A Titer Blood Type Antibody Screen Crossmatch Problem List - Problems (1) Abdominal pain Code(s): R10.9 - UNSPECIFIED ABDOMINAL PAIN Qualifiers: Abdominal location: epigastric Qualified Code(s): R10.13 - Epigastric pain (2) Esophageal varix bleeding Code(s): I85.01 - ESOPHAGEAL VARICES WITH BLEEDING Qualifiers: Esophageal varices type: secondary Qualified Code(s): I85.11 - Secondary esophageal varices with bleeding (3) Anemia Code(s): D64.9 - ANEMIA, UNSPECIFIED (4) Endotracheally intubated Code(s): Z97.8 - PRESENCE OF OTHER SPECIFIED DEVICES (5) Hematemesis Code(s): K92.0 - HEMATEMESIS Assessment/Plan AC Mode of vent Mechanical VTE prophylaxis Glycemic control IVF Normal transfusion thresholds Maintain large bore IV access Octreotide drip PPI BID NPO Serial CBC Low threshold to DC ABX Requires continued ICU monitoring Dr Jackson Critical care time spent in reviewing chart, evaluating patient and formulating plan - 36 minutes.
--- NOTE | 2019-08-10 14:12 | PN ---
Physical Exam: SUBJECTIVE: Patient seen and examined. Intubated and sedated the morning. Will extubate if no EGD later today. OBJECTIVE: Vital Signs Period Temp Pulse Resp BP Sys/Alatorre Pulse Ox Last 24 Hr 97.9 F-98.7 F 85-104 14-20 94-115/52-83 97-100 GENERAL: intubated, sedated HEAD: Normal with no signs of trauma. ENT: moist mucous membranes. NECK: trachea midline LUNGS: decreased breath sounds bilaterally. no accessory muscle use. HEART: murmur noted. Regular rate and rhythm, S1, S2 ABDOMEN: Soft, nontender, nondistended, normoactive bowel sounds, no guarding, no rebound, no hepatosplenomegaly, no masses. EXTREMITIES: 2+ pulses, warm, well-perfused, no edema. NEUROLOGICAL: normal gag reflex Laboratory Results - last 24 hr 08/09/19 08/09/19 08/09/19 21:45 21:45 21:45 WBC 7.6 RBC 3.63 L Hgb 7.3 L Hct 25.0 L MCV 68.8 L MCH 20.1 L MCHC 29.2 L RDW 18.8 H Plt Count 82 L MPV 9.6 Absolute Neuts (auto) 6.0 Neutrophils % 78.3 Lymphocytes % 13.5 Monocytes % 7.1 Eosinophils % 0.5 Basophils % 0.6 Nucleated RBC % 0 Hypochromia 2+ Platelet Estimate Decreased Platelet Comment No clumping noted Anisocytosis 1+ PT with INR INR PTT (Actin FS) 26.8 Sodium Potassium Chloride Carbon Dioxide Anion Gap BUN Creatinine Est GFR (CKD-EPI)AfAm Est GFR (CKD-EPI)NonAf POC Glucometer Random Glucose Calcium Phosphorus Magnesium Total Bilirubin AST ALT Alkaline Phosphatase Ammonia 28.20 Creatine Kinase Troponin I Total Protein Albumin Lipase Urine Color Urine Appearance Urine pH Ur Specific [place] Urine Protein Urine Glucose (UA) Urine Ketones Urine Blood Urine Nitrite Urine Bilirubin Urine Urobilinogen Ur Leukocyte Esterase Stool Occult Blood Anti-A Titer Blood Type Antibody Screen Crossmatch 08/09/19 08/09/19 08/09/19 21:45 21:45 21:45 WBC RBC Hgb Hct MCV MCH MCHC RDW Plt Count MPV Absolute Neuts (auto) Neutrophils % Lymphocytes % Monocytes % Eosinophils % Basophils % Nucleated RBC % Hypochromia Platelet Estimate Platelet Comment Anisocytosis PT with INR INR PTT (Actin FS) Sodium 135 L Potassium 4.4 Chloride 104 Carbon Dioxide 21 Anion Gap 10 BUN 17.0 Creatinine 1.1 Est GFR (CKD-EPI)AfAm 85.31 Est GFR (CKD-EPI)NonAf 73.61 POC Glucometer Random Glucose 304 H Calcium 8.5 Phosphorus 2.6 Magnesium 1.5 L Total Bilirubin 0.6 AST 33 ALT 45 Alkaline Phosphatase 80 Ammonia Creatine Kinase 87 Troponin I 0.02 Total Protein 7.0 Albumin 3.3 L Lipase 142 Urine Color Urine Appearance Urine pH Ur Specific [place] Urine Protein Urine Glucose (UA) Urine Ketones Urine Blood Urine Nitrite Urine Bilirubin Urine Urobilinogen Ur Leukocyte Esterase Stool Occult Blood Anti-A Titer Blood Type Antibody Screen Crossmatch 08/09/19 08/09/19 08/09/19 21:45 21:45 21:45 WBC RBC Hgb Hct MCV MCH MCHC RDW Plt Count MPV Absolute Neuts (auto) Neutrophils % Lymphocytes % Monocytes % Eosinophils % Basophils % Nucleated RBC % Hypochromia Platelet Estimate Platelet Comment Anisocytosis PT with INR 16.20 H INR 1.37 H PTT (Actin FS) Sodium Potassium Chloride Carbon Dioxide Anion Gap BUN Creatinine Est GFR (CKD-EPI)AfAm Est GFR (CKD-EPI)NonAf POC Glucometer Random Glucose Calcium Phosphorus Magnesium Total Bilirubin AST ALT Alkaline Phosphatase Ammonia Creatine Kinase Troponin I Total Protein Albumin Lipase Urine Color Urine Appearance Urine pH Ur Specific [place] Urine Protein Urine Glucose (UA) Urine Ketones Urine Blood Urine Nitrite Urine Bilirubin Urine Urobilinogen Ur Leukocyte Esterase Stool Occult Blood Positive Anti-A Titer Cancelled Blood Type Cancelled Antibody Screen Cancelled Crossmatch 08/09/19 08/09/19 08/10/19 21:45 23:18 00:10 WBC RBC Hgb Hct MCV MCH MCHC RDW Plt Count MPV Absolute Neuts (auto) Neutrophils % Lymphocytes % Monocytes % Eosinophils % Basophils % Nucleated RBC % Hypochromia Platelet Estimate Platelet Comment Anisocytosis PT with INR INR PTT (Actin FS) Sodium Potassium Chloride Carbon Dioxide Anion Gap BUN Creatinine Est GFR (CKD-EPI)AfAm Est GFR (CKD-EPI)NonAf POC Glucometer 244 Random Glucose Calcium Phosphorus Magnesium Total Bilirubin AST ALT Alkaline Phosphatase Ammonia Creatine Kinase Troponin I Total Protein Albumin Lipase Urine Color Urine Appearance Urine pH Ur Specific [place] Urine Protein Urine Glucose (UA) Urine Ketones Urine Blood Urine Nitrite Urine Bilirubin Urine Urobilinogen Ur Leukocyte Esterase Stool Occult Blood Anti-A Titer Blood Type A POSITIVE A POSITIVE Antibody Screen Negative Negative Crossmatch See Detail 08/10/19 08/10/19 08/10/19 02:54 03:30 06:25 WBC RBC Hgb Hct MCV MCH MCHC RDW Plt Count MPV Absolute Neuts (auto) Neutrophils % Lymphocytes % Monocytes % Eosinophils % Basophils % Nucleated RBC % Hypochromia Platelet Estimate Platelet Comment Anisocytosis PT with INR INR PTT (Actin FS) Sodium Potassium Chloride Carbon Dioxide Anion Gap BUN Creatinine Est GFR (CKD-EPI)AfAm Est GFR (CKD-EPI)NonAf POC Glucometer 246 Random Glucose Calcium Phosphorus Magnesium Total Bilirubin AST ALT Alkaline Phosphatase Ammonia Creatine Kinase Troponin I Total Protein Albumin Lipase Urine Color Yellow Urine Appearance Clear Urine pH 5.0 Ur Specific [place] 1.036 H Urine Protein Trace Urine Glucose (UA) 3+ H Urine Ketones 1+ H Urine Blood Negative Urine Nitrite Negative Urine Bilirubin Negative Urine Urobilinogen 0.2 Ur Leukocyte Esterase Negative Stool Occult Blood Anti-A Titer Blood Type A POSITIVE Antibody Screen Crossmatch 08/10/19 08/10/19 08/10/19 06:25 06:25 06:25 WBC 8.4 RBC 3.91 L Hgb 8.8 L Hct 28.2 L MCV 72.2 L MCH 22.6 L MCHC 31.3 L RDW 20.8 H Plt Count 81 L MPV 9.9 Absolute Neuts (auto) Neutrophils % Lymphocytes % Monocytes % Eosinophils % Basophils % Nucleated RBC % Hypochromia Platelet Estimate Platelet Comment Anisocytosis PT with INR 16.20 H INR 1.37 H PTT (Actin FS) 33.5 Sodium 133 L Potassium 6.6 H* Chloride 104 Carbon Dioxide 19 L Anion Gap 10 BUN 23.2 H Creatinine 1.3 Est GFR (CKD-EPI)AfAm 69.71 Est GFR (CKD-EPI)NonAf 60.14 POC Glucometer Random Glucose 307 H Calcium 7.8 L Phosphorus 3.0 Magnesium 1.6 L Total Bilirubin 1.5 H AST 30 ALT 43 Alkaline Phosphatase 66 Ammonia Creatine Kinase Troponin I Total Protein 6.6 Albumin 3.0 L Lipase Urine Color Urine Appearance Urine pH Ur Specific [place] Urine Protein Urine Glucose (UA) Urine Ketones Urine Blood Urine Nitrite Urine Bilirubin Urine Urobilinogen Ur Leukocyte Esterase Stool Occult Blood Anti-A Titer Blood Type Antibody Screen Crossmatch 08/10/19 08/10/19 08/10/19 06:43 11:15 13:02 WBC RBC Hgb Hct MCV MCH MCHC RDW Plt Count MPV Absolute Neuts (auto) Neutrophils % Lymphocytes % Monocytes % Eosinophils % Basophils % Nucleated RBC % Hypochromia Platelet Estimate Platelet Comment Anisocytosis PT with INR INR PTT (Actin FS) Sodium 137 Potassium 4.6 Chloride 105 Carbon Dioxide 23 Anion Gap 8 BUN 23.4 H Creatinine 1.1 Est GFR (CKD-EPI)AfAm 85.31 Est GFR (CKD-EPI)NonAf 73.61 POC Glucometer 270 227 Random Glucose 265 H Calcium 8.0 L Phosphorus Magnesium Total Bilirubin AST ALT Alkaline Phosphatase Ammonia Creatine Kinase Troponin I Total Protein Albumin Lipase Urine Color Urine Appearance Urine pH Ur Specific [place] Urine Protein Urine Glucose (UA) Urine Ketones Urine Blood Urine Nitrite Urine Bilirubin Urine Urobilinogen Ur Leukocyte Esterase Stool Occult Blood Anti-A Titer Blood Type Antibody Screen Crossmatch Active Medications Generic Name Dose Route Start Last Admin Trade Name Freq PRN Reason Stop Dose Admin Octreotide Acetate 200 mcg/ 500 mls @ 20.833 mls/hr 08/09/19 23:00 08/10/19 00:20 Octreotide Acetate 1,000 mcg/ IVPB 20.833 mls/hr Dextrose ASDIR SHADI Administration Lactated Ringer's 1,000 ml in 1,000 mls @ 125 mls/hr 08/09/19 23:45 08/10/19 06:10 Lactated Ringers Solution IV 125 mls/hr ASDIR SHADI Administration Propofol 1,000,000 mcg in 100 mls @ 4.899 mls/hr 08/10/19 02:30 08/10/19 06: 15 Diprivan - IVPB 40 mcg/kg/min TITR SHADI 19.595 mls/hr Administration Protocol 10 MCG/KG/MIN Ceftriaxone Sodium 1 gm/ 50 mls @ 100 mls/hr 08/10/19 08:00 08/10/19 07:36 Dextrose IVPB 100 mls/hr DAILY SHADI Administration Protocol Pantoprazole Sodium 40 mg 08/10/19 10:00 08/10/19 09:23 Protonix Iv IVPUSH 40 mg BID SHADI Administration ASSESSMENT/PLAN: 59 year old male with PMHX of HTN, DM, cirrhosis 2/2 [place] presented to ED due to hematemesis. Patient had an EGD done and was admitted to the ICU while intubated for repeat EGD in the morning. #Pulm - will extubate if no EGD planned today - CXR - prominent mediastinum with congestive changes - Propofol drip for vent synchrony - Aspiration precautions #GI - Maintain large bore IV access - Cont octreotide drip - Cont pantoprazole BID - monitor H&H - Transfuse for Hgb<7, Plts<50 - No EGD planned for today as per GI, no signs of bleeding, VS stable #ID - urine culture pending - Continue Ceftriaxone #CV - Cont IVF - Hold antiHTN #Endo - BGMs - Insulin sliding scale #FEN - LR at 125mls/hr - NPO #Prophylaxis - SCDs - Protonix #Disposition - Continue ICU monitoring Visit type - Emergency Visit Emergency Visit: Yes ED Registration Date: 08/10/19 Care time: The patient presented to the Emergency Department on the above date and was hospitalized for further evaluation of their emergent condition. - New Patient This patient is new to me today: Yes Date on this admission: 08/10/19 - Critical Care Critical Care patient: Yes Total Critical Care Time (in minutes): 36 Critical Care Statement: The care of this patient involved high complexity decision making to prevent further life threatening deterioration of the patient 's condition and/or to evaluate & treat vital organ system(s) failure or risk of failure. ATTENDING PHYSICIAN STATEMENT I saw and evaluated the patient. I reviewed the resident's note and discussed the case with the resident. I agree with the resident's findings and plan as documented. SUBJECTIVE: OBJECTIVE: ASSESSMENT AND PLAN:
[2019-08-10] MEDS ORDERED: ONDANSETRON 4 MG/2 ML VIAL IVPUSH ONE (14:43)
[2019-08-10] MEDS ORDERED: ETOMIDATE 20 MG/10 ML AMPUL IVPUSH ONE (14:52)
[2019-08-10 16:33] LABS: HEMATOCRIT 26.6 % (35.4-49); HEMOGLOBIN 8.3 GM/dL (11.7-16.9); MCHC 31.1 g/dl (32.0-35.9); MEAN CELL VOLUME 70.8 fl (80-96); MEAN PLT VOLUME 10.8 fl (7.5-11.1); PLATELET COUNT 83 K/MM3 (134-434); RBC 3.76 M/mm3 (4.00-5.60); RDW 20.9 % (11.9-15.9); WHITE BLOOD COUNT 8.5 K/mm3 (4.0-10.0)
[2019-08-10] MEDS ORDERED: PT OWN MED DRAWER 7, Y5N ONE (18:09)
[2019-08-11] MEDS: LACTATED RINGERS SOLUTION 1,000 ML/1,000 ML INFUS.BAG IV SCH ×2 (00:03→17:12)
[2019-08-11 07:46] LABS: BASO % 0.3 % (0-2.0); EOS % 1.1 % (0-4.5); HEMATOCRIT 24.3 % (35.4-49); HEMOGLOBIN 7.6 GM/dL (11.7-16.9); MCH 22.1 pg (25.7-33.7); MCHC 31.1 g/dl (32.0-35.9); MEAN CELL VOLUME 70.9 fl (80-96); MEAN PLT VOLUME 9.4 fl (7.5-11.1); MONO % 6.9 % (3.8-10.2); NEUT % 73.7 % (42.8-82.8); RBC 3.43 M/mm3 (4.00-5.60); RDW 21.6 % (11.9-15.9); WHITE BLOOD COUNT 8.8 K/mm3 (4.0-10.0)
[2019-08-11 08:27] LABS: ALBUMIN 2.8 g/dl (3.4-5.0); BILIRUBIN,TOTAL 1.4 mg/dL (0.2-1); BLOOD UREA NITROGEN 17.7 mg/dL (7-18); CALCIUM 8.4 mg/dL (8.5-10.1); CREATININE 0.8 mg/dL (0.55-1.3); MAGNESIUM 1.8 mg/dL (1.8-2.4); PHOSPHOROUS 2.2 mg/dL (2.5-4.9); POTASSIUM 3.9 mmol/L (3.5-5.1)
[2019-08-11] MEDS ORDERED: cefTRIAXone SODIUM 1 GM VIAL ONE (10:24)
[2019-08-11] MEDS ORDERED: DEXTROSE 5%-WATER - 50 ML IVPB ONE (10:25)
[2019-08-11] MEDS: CEFTRIAXONE 1 GM in DEXTROSE 5%-WATER - 50 ML IVPB SCH (10:42)
--- NOTE | 2019-08-11 10:43 | EKG ---
Test Reason : Blood Pressure : / mmHG Vent. Rate : 088 BPM Atrial Rate : 088 BPM P-R Int : 196 ms QRS Dur : 076 ms QT Int : 410 ms P-R-T Axes : 024 013 021 degrees QTc Int : 496 ms NORMAL SINUS RHYTHM PROLONGED QT ABNORMAL ECG Confirmed by MD ROSA, CONSUELO ([id number]) on 08/11/2019 10:43:28 AM Referred By: Confirmed By:CONSUELO LEE MD
[2019-08-11] MEDS: PANTOPRAZOLE SODIUM 40 MG VIAL IVPUSH SCH ×2 (10:44→21:17)
--- NOTE | 2019-08-11 10:53 | PN ---
Progress Note, Physician Chief Complaint: Hematemesis Anemia Esophageal varices - Current Medication List Current Medications: Active Medications Octreotide Acetate 200 mcg/Octreotide Acetate 1,000 mcg/Dextrose 500 mls @ 20.833 mls/hr IVPB ASDIR SHADI Last Admin: 08/10/19 22:57 Dose: 20.833 mls/hr Lactated Ringer's (Lactated Ringers Solution) 1,000 ml in 1,000 mls @ 125 mls/ hr IV ASDIR SHADI Last Admin: 08/11/19 00:03 Dose: 125 mls/hr Propofol (Diprivan -) 1,000,000 mcg in 100 mls @ 4.899 mls/hr IVPB TITR SHADI; Protocol Last Titration: 08/10/19 14:00 Dose: 0 mcg/kg/min, 0 mls/hr Ceftriaxone Sodium 1 gm/ (Dextrose) 50 mls @ 100 mls/hr IVPB DAILY SHADI; Protocol Last Admin: 08/11/19 10:42 Dose: 100 mls/hr Pantoprazole Sodium (Protonix Iv) 40 mg IVPUSH BID SHADI Last Admin: 08/11/19 10:44 Dose: 40 mg - Objective Vital Signs: Vital Signs Temperature 98.1 F 08/11/19 10:00 Pulse Rate 79 08/11/19 10:00 Respiratory Rate 9 L 08/11/19 10:00 Blood Pressure 115/79 08/11/19 10:00 O2 Sat by Pulse Oximetry (%) 98 08/10/19 21:00 Respiratory: Yes: Intubated, Mechanically Ventilated Labs: CBC, BMP 08/11/19 06:44 08/11/19 06:44 INR, PTT INR 1.37 (0.83-1.09) H 08/10/19 06:25
--- NOTE | 2019-08-11 11:58 | PN ---
Teaching Attending Note Name of Resident: Jalen Bang ATTENDING PHYSICIAN STATEMENT I saw and evaluated the patient. I reviewed the resident's note and discussed the case with the resident. I agree with the resident's findings and plan as documented. SUBJECTIVE: Patient seen and examined in the ICU. Currently extubated. Awake and alert. Reports mild abdominal discomfort and "gas". No CP or SOB. Intake & Output 08/08/19 08/09/19 08/10/19 08/11/19 23:59 23:59 23:59 23:59 Intake Total 3715 1018.5 Output Total 2350 Balance 1365 1018.5 Weight 180 lb 200 lb 6 oz 197 lb 4.8 oz Last Vital Signs Temp Pulse Resp BP Pulse Ox 98.1 F 79 9 L 115/79 98 08/11/19 10:00 08/11/19 10:00 08/11/19 10:00 08/11/19 10:00 08/10/19 21:00 Active Medications Octreotide Acetate 200 mcg/Octreotide Acetate 1,000 mcg/Dextrose 500 mls @ 20.833 mls/hr IVPB ASDIR SHADI Last Admin: 08/10/19 22:57 Dose: 20.833 mls/hr Lactated Ringer's (Lactated Ringers Solution) 1,000 ml in 1,000 mls @ 125 mls/ hr IV ASDIR SHADI Last Admin: 08/11/19 00:03 Dose: 125 mls/hr Propofol (Diprivan -) 1,000,000 mcg in 100 mls @ 4.899 mls/hr IVPB TITR SHADI; Protocol Last Titration: 08/10/19 14:00 Dose: 0 mcg/kg/min, 0 mls/hr Ceftriaxone Sodium 1 gm/ (Dextrose) 50 mls @ 100 mls/hr IVPB DAILY SHADI; Protocol Last Admin: 08/11/19 10:42 Dose: 100 mls/hr Pantoprazole Sodium (Protonix Iv) 40 mg IVPUSH BID SHADI Last Admin: 08/11/19 10:44 Dose: 40 mg Constitutional: Yes: Extubated, awake and alert Eyes: Yes: WNL, Conjunctiva Clear, PERRL HENT: Yes: Atraumatic, Normocephalic Neck: Yes: WNL, Supple, Trachea Midline Cardiovascular: Yes: Regular Rate and Rhythm, S1, S2 Respiratory: Yes: Clear, diminished at the bases Gastrointestinal: Yes: Abdomen, Obese, Ascites, Distention, Hypoactive Bowel Sounds ...Rectal Exam: Yes: Deferred Renal/: Yes: Guzman Present Musculoskeletal: Yes: WNL Extremities: Yes: WNL Edema: No Peripheral Pulses WNL: Yes Neurological: Yes: Non-focal Labs: Laboratory Results - last 24 hr 08/10/19 08/10/19 08/10/19 11:15 13:02 15:45 WBC 8.5 RBC 3.76 L Hgb 8.3 L Hct 26.6 L MCV 70.8 L MCH 22.0 L MCHC 31.1 L RDW 20.9 H Plt Count 83 L MPV 10.8 Absolute Neuts (auto) Neutrophils % Lymphocytes % Monocytes % Eosinophils % Basophils % Nucleated RBC % Sodium 137 Potassium 4.6 Chloride 105 Carbon Dioxide 23 Anion Gap 8 BUN 23.4 H Creatinine 1.1 Est GFR (CKD-EPI)AfAm 85.31 Est GFR (CKD-EPI)NonAf 73.61 POC Glucometer 227 Random Glucose 265 H Calcium 8.0 L Phosphorus Magnesium Total Bilirubin AST ALT Alkaline Phosphatase Total Protein Albumin 08/11/19 08/11/19 08/11/19 05:35 06:44 06:44 WBC 8.8 RBC 3.43 L Hgb 7.6 L Hct 24.3 L MCV 70.9 L MCH 22.1 L MCHC 31.1 L RDW 21.6 H Plt Count MPV Absolute Neuts (auto) 6.5 Neutrophils % 73.7 Lymphocytes % 18.0 D Monocytes % 6.9 Eosinophils % 1.1 D Basophils % 0.3 Nucleated RBC % 0 Sodium 139 Potassium 3.9 Chloride 108 H Carbon Dioxide 24 Anion Gap 7 L BUN 17.7 Creatinine 0.8 Est GFR (CKD-EPI)AfAm 114.13 Est GFR (CKD-EPI)NonAf 98.47 POC Glucometer 166 Random Glucose 158 H Calcium 8.4 L Phosphorus 2.2 L Magnesium 1.8 Total Bilirubin 1.4 H AST 30 ALT 38 Alkaline Phosphatase 56 Total Protein 6.0 L Albumin 2.8 L Problem List - Problems (1) Abdominal pain Code(s): R10.9 - UNSPECIFIED ABDOMINAL PAIN Qualifiers: Abdominal location: epigastric Qualified Code(s): R10.13 - Epigastric pain (2) Esophageal varix bleeding Code(s): I85.01 - ESOPHAGEAL VARICES WITH BLEEDING Qualifiers: Esophageal varices type: secondary Qualified Code(s): I85.11 - Secondary esophageal varices with bleeding (3) Anemia Code(s): D64.9 - ANEMIA, UNSPECIFIED (4) Endotracheally intubated Code(s): Z97.8 - PRESENCE OF OTHER SPECIFIED DEVICES (5) Hematemesis Code(s): K92.0 - HEMATEMESIS Assessment/Plan Mechanical VTE prophylaxis Glycemic control IVF Normal transfusion thresholds Maintain large bore IV access Octreotide per GI PPI BID PO when cleared by GI Serial CBC Low threshold to DC ABX Floor Dr Jackson
[2019-08-11 13:09] LABS: PLATELET ESTIMATE DECREASED
[2019-08-11 13:23] LABS: PLATELET COUNT 69 K/MM3 (134-434)
--- NOTE | 2019-08-11 13:45 | PN ---
Physical Exam: SUBJECTIVE: Patient seen and examined. at bedside. Complains of abdominal pain but has not vomited since yesterday when he was extubated. OBJECTIVE: Vital Signs Period Temp Pulse Resp BP Sys/Alatorre Pulse Ox Last 24 Hr 98.1 F-99.7 F 72-95 9 102-132/71-87 98 GENERAL: The patient is awake, alert, and fully oriented, in no acute distress. HEAD: Normal with no signs of trauma. EYES: PERRL, EOMI, no scleral icterus NECK: Trachea midline, supple, full range of motion LUNGS: Breath sounds equal, clear to auscultation bilaterally, no wheezes, no crackles, no accessory muscle use. HEART: Regular rate and rhythm, S1, S2 without murmur, rub or gallop. ABDOMEN: soft, distended. Mild diffuse tenderness to palpation. obese EXTREMITIES: 2+ pulses, warm, well-perfused, no edema. NEUROLOGICAL: Normal speech, gait not observed. SKIN: Warm, dry Laboratory Results - last 24 hr 08/10/19 08/11/19 08/11/19 15:45 05:35 06:44 WBC 8.5 RBC 3.76 L Hgb 8.3 L Hct 26.6 L MCV 70.8 L MCH 22.0 L MCHC 31.1 L RDW 20.9 H Plt Count 83 L MPV 10.8 Absolute Neuts (auto) Neutrophils % Lymphocytes % Monocytes % Eosinophils % Basophils % Nucleated RBC % Platelet Estimate Sodium 139 Potassium 3.9 Chloride 108 H Carbon Dioxide 24 Anion Gap 7 L BUN 17.7 Creatinine 0.8 Est GFR (CKD-EPI)AfAm 114.13 Est GFR (CKD-EPI)NonAf 98.47 POC Glucometer 166 Random Glucose 158 H Calcium 8.4 L Phosphorus 2.2 L Magnesium 1.8 Total Bilirubin 1.4 H AST 30 ALT 38 Alkaline Phosphatase 56 Total Protein 6.0 L Albumin 2.8 L 08/11/19 08/11/19 06:44 13:14 WBC 8.8 RBC 3.43 L Hgb 7.6 L Hct 24.3 L MCV 70.9 L MCH 22.1 L MCHC 31.1 L RDW 21.6 H Plt Count 69 L MPV 9.4 D Absolute Neuts (auto) 6.5 Neutrophils % 73.7 Lymphocytes % 18.0 D Monocytes % 6.9 Eosinophils % 1.1 D Basophils % 0.3 Nucleated RBC % 0 Platelet Estimate Decreased Sodium Potassium Chloride Carbon Dioxide Anion Gap BUN Creatinine Est GFR (CKD-EPI)AfAm Est GFR (CKD-EPI)NonAf POC Glucometer 162 Random Glucose Calcium Phosphorus Magnesium Total Bilirubin AST ALT Alkaline Phosphatase Total Protein Albumin Active Medications Generic Name Dose Route Start Last Admin Trade Name Freq PRN Reason Stop Dose Admin Octreotide Acetate 200 mcg/ 500 mls @ 20.833 mls/hr 08/09/19 23:00 08/10/19 22:57 Octreotide Acetate 1,000 mcg/ IVPB 20.833 mls/hr Dextrose ASDIR SHADI Administration Lactated Ringer's 1,000 ml in 1,000 mls @ 125 mls/hr 08/09/19 23:45 08/11/19 00:03 Lactated Ringers Solution IV 125 mls/hr ASDIR SHADI Administration Propofol 1,000,000 mcg in 100 mls @ 4.899 mls/hr 08/10/19 02:30 08/10/19 14: 00 Diprivan - IVPB 0 mcg/kg/min TITR SHADI 0 mls/hr Titration Protocol 10 MCG/KG/MIN Ceftriaxone Sodium 1 gm/ 50 mls @ 100 mls/hr 08/10/19 08:00 08/11/19 10:42 Dextrose IVPB 100 mls/hr DAILY SHADI Administration Protocol Pantoprazole Sodium 40 mg 08/10/19 10:00 08/11/19 10:44 Protonix Iv IVPUSH 40 mg BID SHADI Administration ASSESSMENT/PLAN: 59 year old male with PMHX of HTN, DM, cirrhosis 2/2 [place] presented to ED due to hematemesis. Patient had an EGD done and was admitted to the ICU while intubated for repeat EGD in the morning. #Neuro - AAOx3, monitor #Pulm - patient extubated on 08/10, O2 saturation >90% on nasal canula - CXR 08/11 - less prominent mediastinum, clear lungs - Propofol discontinued - Aspiration precautions #GI - Maintain large bore IV access - Octreotide drip per GI - Cont pantoprazole BID - monitor H&H - Transfuse for Hgb<7, Plts<50 - Repeat EGD as per GI #ID - urine culture negative - Continue Ceftriaxone #CV - Cont IVF - Hold antiHTN #Endo - BGMs - Insulin sliding scale #FEN - LR at 125mls/hr - may start diet when cleared by GI #Prophylaxis - SCDs - Protonix #Disposition - Stable for transfer to med surg Visit type - Emergency Visit Emergency Visit: Yes ED Registration Date: 08/10/19 Care time: The patient presented to the Emergency Department on the above date and was hospitalized for further evaluation of their emergent condition. - New Patient This patient is new to me today: No - Critical Care Critical Care patient: Yes Total Critical Care Time (in minutes): 36 Critical Care Statement: The care of this patient involved high complexity decision making to prevent further life threatening deterioration of the patient 's condition and/or to evaluate & treat vital organ system(s) failure or risk of failure. ATTENDING PHYSICIAN STATEMENT I saw and evaluated the patient. I reviewed the resident's note and discussed the case with the resident. I agree with the resident's findings and plan as documented. SUBJECTIVE: OBJECTIVE: ASSESSMENT AND PLAN:
--- NOTE | 2019-08-11 14:18 | PN ---
Progress Note (short form) - Note Progress Note: Pt seen. Doing well. S/p EGD under general anesthesia. Doing well. Transferred out from ICU. No recall.
[2019-08-11] MEDS ORDERED: PHYTONADIONE 10 MG/1 ML AMP IVPB ONE (17:17)
--- NOTE | 2019-08-11 17:23 | PN.GI ---
GI Progress Note Subjective: coverage for Dr Jansen no active bleeding, H&H decreased to 7.6/24,no melena and no rectal bleeding - Objective Vital Signs: Vital Signs Temperature 97.9 F 08/11/19 13:50 Pulse Rate 76 08/11/19 13:50 Respiratory Rate 20 08/11/19 13:50 Blood Pressure 108/68 08/11/19 13:50 O2 Sat by Pulse Oximetry (%) 98 08/10/19 21:00 Constitutional: No Distress Eyes: Yes: Conjunctiva Clear HENT: Yes: Atraumatic Neck: Yes: Supple Cardiovascular: Yes: Regular Rate and Rhythm Respiratory: Yes: CTA Bilaterally ...Palpate: Yes: Soft. No: Firm/Rigid, Guarding, Hepatomegaly, Mass, Pulsatile Mass, Splenomegaly, Tenderness Labs: CBC, BMP 08/11/19 06:44 08/11/19 06:44 INR, PTT INR 1.37 (0.83-1.09) H 08/10/19 06:25 Problem List - Problems (1) Esophageal varix bleeding Assessment/Plan: associated with anemia and coagulopathy R> IV vit K transfuse of Hgb of 8' sandostatin for another 24 hors if Hgb stable may d/c and advance diet Code(s): I85.01 - ESOPHAGEAL VARICES WITH BLEEDING Qualifiers: Esophageal varices type: secondary Qualified Code(s): I85.11 - Secondary esophageal varices with bleeding
[2019-08-11] MEDS: OCTREOTIDE ACETATE 200 MCG, OCTREOTIDE ACETATE 1,000 MCG in DEXTROSE 5%-WATER - 496 ML IVPB SCH (21:17)
[2019-08-12] MEDS: LACTATED RINGERS SOLUTION 1,000 ML/1,000 ML INFUS.BAG IV SCH ×4 (00:12→22:36)
[2019-08-12] MEDS ORDERED: cefTRIAXone SODIUM 1 GM VIAL ONE (09:29)
[2019-08-12] MEDS ORDERED: DEXTROSE 5%-WATER - 50 ML IVPB ONE (09:29)
--- NOTE | 2019-08-12 09:29 | PN ---
Progress Note, Physician Chief Complaint: Anemia Esophageal Varices Bleeding Hematemesis History of Present Illness: Previous notes and events reviewed awake and alert NAD patient scheduled for repeat EGD today complain of dysuria and testicular pain/swelling - Current Medication List Current Medications: Active Medications Ceftriaxone Sodium 1 gm/ (Dextrose) 50 mls @ 100 mls/hr IVPB DAILY SHADI; Protocol Lactated Ringer's (Lactated Ringers Solution) 1,000 ml in 1,000 mls @ 125 mls/ hr IV ASDIR SHADI Last Admin: 08/12/19 00:12 Dose: 125 mls/hr Octreotide Acetate 200 mcg/Octreotide Acetate 1,000 mcg/Dextrose 500 mls @ 20.833 mls/hr IVPB ASDIR SHADI Last Admin: 08/11/19 21:17 Dose: 20.833 mls/hr Pantoprazole Sodium (Protonix Iv) 40 mg IVPUSH BID SHADI Last Admin: 08/11/19 21:17 Dose: 40 mg - Objective Vital Signs: Vital Signs Temperature 99.0 F 08/12/19 05:55 Pulse Rate 78 08/12/19 05:55 Respiratory Rate 20 08/12/19 05:55 Blood Pressure 108/67 08/12/19 05:55 O2 Sat by Pulse Oximetry (%) 96 08/11/19 21:00 Constitutional: Yes: No Distress, Calm Eyes: Yes: Conjunctiva Clear HENT: Yes: Atraumatic Cardiovascular: Yes: Regular Rate and Rhythm Respiratory: Yes: Regular, CTA Bilaterally Gastrointestinal: Yes: Normal Bowel Sounds, Soft Musculoskeletal: Yes: Muscle Weakness Extremities: Yes: WNL Edema: No Neurological: Yes: Alert, Oriented Psychiatric: Yes: Alert, Oriented Labs: CBC, BMP 08/11/19 06:44 08/11/19 06:44 INR, PTT INR 1.37 (0.83-1.09) H 08/10/19 06:25 Problem List - Problems (1) Dysuria Assessment/Plan: -UA and UC ordered Code(s): R30.0 - DYSURIA (2) Testicular pain, unspecified Assessment/Plan: -Testicular US ordered Code(s): N50.819 - TESTICULAR PAIN, UNSPECIFIED (3) Anemia Assessment/Plan: -Hg 7.6 -monitor Hg daily -transfuse for Hg <7.0 -GI on board -EGD showed espophageal varices -repeat EGD today -Pantoprazole Code(s): D64.9 - ANEMIA, UNSPECIFIED (4) Esophageal varix bleeding Assessment/Plan: -GI on board -EGD showed espophageal varices -repeat EGD today -Pantoprazole Code(s): I85.01 - ESOPHAGEAL VARICES WITH BLEEDING Qualifiers: Esophageal varices type: secondary Qualified Code(s): I85.11 - Secondary esophageal varices with bleeding (5) Hypomagnesemia Assessment/Plan: -resolved -Mag 1.8 Code(s): E83.42 - HYPOMAGNESEMIA Assessment/Plan see problem list dvt ppx
[2019-08-12] MEDS: PANTOPRAZOLE SODIUM 40 MG VIAL IVPUSH SCH ×3 (09:33→21:16)
[2019-08-12] MEDS: CEFTRIAXONE 1 GM in DEXTROSE 5%-WATER - 50 ML IVPB SCH (09:34)
[2019-08-12 10:58] VITALS: BMI 34.0
[2019-08-12 11:10] LABS: INR 1.3 (0.83-1.09); PROTHROMBIN TIME (PATIENT) 15.4 SEC (9.7-13.0)
--- NOTE | 2019-08-12 14:57 | PN ---
Progress Note (short form) - Note Progress Note: Brief GI note EGD performed today revealing partially eradicated varices, [address], one residual variceal cord without high risk stigmata. Few smal gastric body polyps seen not biopsied/removed on this exam in setting of recent bleed. See scanned report for details. Recommendations: -Resume clear liquid diet -Continue to monitor Hb -Continue octreotide x 72 hours -PPI bid -Pt will require close GI/liver follow up and repeat EGD in 2-3 weeks for possible repeat banding and to re-evaluate/removal of gastric polyps. Discussed with findings/recommendations with patient after the procedure.
[2019-08-12] MEDS: OCTREOTIDE ACETATE 200 MCG, OCTREOTIDE ACETATE 1,000 MCG in DEXTROSE 5%-WATER - 496 ML IVPB SCH (18:37)
[2019-08-13 04:34] LABS: PH,URINE 5.5 (5.0-8.0); URINE APPEARANCE CLEAR; URINE BILIRUBIN NEGATIVE (NEGATIVE); URINE COLOR YELLOW; URINE GLUCOSE (UA) NEGATIVE (NEGATIVE); URINE KETONE NEGATIVE (NEGATIVE); URINE LEUK ESTERASE NEGATIVE (NEGATIVE); URINE NITRITE NEGATIVE (NEGATIVE); URINE PROTEIN NEGATIVE (NEGATIVE); URINE UROBILINOGEN 0.2 mg/dL (0.2-1.0)
[2019-08-13] MEDS: LACTATED RINGERS SOLUTION 1,000 ML/1,000 ML INFUS.BAG IV SCH (06:26)
[2019-08-13] MEDS ORDERED: cefTRIAXone SODIUM 1 GM VIAL ONE (09:22)
[2019-08-13] MEDS ORDERED: DEXTROSE 5%-WATER - 50 ML IVPB ONE (09:23)
[2019-08-13] MEDS: PANTOPRAZOLE SODIUM 40 MG VIAL IVPUSH SCH ×2 (09:26→21:48)
[2019-08-13] MEDS: CEFTRIAXONE 1 GM in DEXTROSE 5%-WATER - 50 ML IVPB SCH (09:26)
[2019-08-13 10:30] LABS: HEMATOCRIT 23.4 % (35.4-49); HEMOGLOBIN 7.3 GM/dL (11.7-16.9); MCH 22.4 pg (25.7-33.7); MCHC 31.1 g/dl (32.0-35.9); MEAN PLT VOLUME 9.3 fl (7.5-11.1); PLATELET COUNT 63 K/MM3 (134-434); RBC 3.25 M/mm3 (4.00-5.60); RDW 23.2 % (11.9-15.9)
--- NOTE | 2019-08-13 10:46 | PN ---
Progress Note, Physician Chief Complaint: Anemia Esophageal Varices Bleeding Hematemesis History of Present Illness: Previous notes and events reviewed awake and alert NAD repeat EGD done yesterday Hg 7.3 continue to complain of testicular swelling and pain - Current Medication List Current Medications: Active Medications Ceftriaxone Sodium 1 gm/ (Dextrose) 50 mls @ 100 mls/hr IVPB DAILY SHADI; Protocol Last Admin: 08/13/19 09:26 Dose: 100 mls/hr Octreotide Acetate 200 mcg/Octreotide Acetate 1,000 mcg/Dextrose 500 mls @ 20.833 mls/hr IVPB ASDIR SHADI Last Admin: 08/12/19 18:37 Dose: 20.833 mls/hr Pantoprazole Sodium (Protonix Iv) 40 mg IVPUSH BID [facility] Last Admin: 08/13/19 09:26 Dose: 40 mg - Objective Vital Signs: Vital Signs Temperature 98.1 F 08/13/19 09:00 Pulse Rate 72 08/13/19 10:39 Respiratory Rate 20 08/13/19 10:39 Blood Pressure 103/69 08/13/19 10:39 O2 Sat by Pulse Oximetry (%) 95 08/12/19 21:00 Constitutional: Yes: No Distress, Calm Eyes: Yes: Conjunctiva Clear HENT: Yes: Atraumatic Cardiovascular: Yes: Regular Rate and Rhythm Respiratory: Yes: Regular, CTA Bilaterally Gastrointestinal: Yes: Normal Bowel Sounds, Soft, Distention Musculoskeletal: Yes: WNL Extremities: Yes: WNL Edema: No Neurological: Yes: Alert, Oriented Psychiatric: Yes: Alert, Oriented Labs: CBC, BMP 08/13/19 09:35 INR, PTT INR 1.30 (0.83-1.09) H 08/12/19 10:05 Problem List - Problems (1) Dysuria Assessment/Plan: -UA neg -UC pending Code(s): R30.0 - DYSURIA (2) Testicular pain, unspecified Assessment/Plan: -Testicular US shows no evidence of torsion or acute pathology, large right scrotal cyst possibly representing a loculated hydrocele or epidydmal head cyst -Urology consult Code(s): N50.819 - TESTICULAR PAIN, UNSPECIFIED (3) Anemia Assessment/Plan: -Hg 7.3 -to receive 1U PRBC for transfusion -monitor Hg daily -transfuse for Hg <7.0 -GI on board -EGD showed espophageal varices -repeat EGD shows partially eradicated varices, [address], one residual variceal cord without high risk stigmata -will need repeat EGD in 2-3 weeks post discharge, close GI follow up -Pantoprazole Code(s): D64.9 - ANEMIA, UNSPECIFIED (4) Esophageal varix bleeding Assessment/Plan: -GI on board -EGD showed espophageal varices -Pantoprazole -repeat EGD shows partially eradicated varices, [address], one residual variceal cord without high risk stigmata -will need repeat EGD in 2-3 weeks post discharge, close GI follow up Code(s): I85.01 - ESOPHAGEAL VARICES WITH BLEEDING Qualifiers: Esophageal varices type: secondary Qualified Code(s): I85.11 - Secondary esophageal varices with bleeding (5) Hypomagnesemia Assessment/Plan: -resolved -Mag 1.8 Code(s): E83.42 - HYPOMAGNESEMIA Assessment/Plan see problem list dvt ppx
[2019-08-13 10:51] LABS: ALBUMIN 2.7 g/dl (3.4-5.0); BILIRUBIN,TOTAL 1.3 mg/dL (0.2-1); BLOOD UREA NITROGEN 12.7 mg/dL (7-18); CALCIUM 7.8 mg/dL (8.5-10.1); CREATININE 0.9 mg/dL (0.55-1.3); POTASSIUM 3.5 mmol/L (3.5-5.1); TOT PROT 5.6 g/dl (6.4-8.2)
[2019-08-13] MEDS ORDERED: PT OWN MED DRAWER 7, Y5N ONE (16:50)
[2019-08-13] MEDS: OCTREOTIDE ACETATE 200 MCG, OCTREOTIDE ACETATE 1,000 MCG in DEXTROSE 5%-WATER - 496 ML IVPB SCH (17:46)
--- NOTE | 2019-08-13 18:13 | CONSULT ---
Consult Consult Specialty:: urology Reason for Consultation:: right hydrocele - History of Present Illness Chief Complaint: right scrotal discomfort History of Present Illness: Patient is a 59 yo male with history of anemia and variceal bleeding. Patient with right scrotal discomfort. Patient denies increased urinary frequency and urgency or significant dysuria. Patient denies scrotal trauma - History Source History Provided By: Patient Limitations to Obtaining History: No Limitations - Past Medical History Cardio/Vascular: Yes: HTN Gastrointestinal: Yes: Esophageal Varices Hepatobiliary: Yes: Cirrhosis - Alcohol/Substance Use Hx Alcohol Use: No - Smoking History Smoking history: Never smoked - Social History Usual Living Arrangement: With Spouse Home Medications - Allergies Allergies/Adverse Reactions: Allergies Allergy/AdvReac Type Severity Reaction Status Date / Time No Known Allergies Allergy Verified 08/09/19 21:48 Physical Exam Vital Signs: Vital Signs Temperature 98.1 F 08/13/19 09:00 Pulse Rate 72 08/13/19 10:39 Respiratory Rate 20 08/13/19 10:39 Blood Pressure 103/69 08/13/19 10:39 O2 Sat by Pulse Oximetry (%) 95 08/12/19 21:00 Constitutional: Yes: No Distress, Calm Eyes: Yes: WNL, Conjunctiva Clear, EOM Intact HENT: Yes: WNL, Atraumatic, Normocephalic Neck: Yes: WNL, Supple, Trachea Midline Cardiovascular: Yes: WNL, Regular Rate and Rhythm Respiratory: Yes: WNL, Regular Gastrointestinal: Yes: Normal Bowel Sounds, Ascites ...Rectal Exam: Yes: WNL Renal/: Yes: WNL (right hydrocele present with mild tenderness) Labs: CBC, BMP 08/13/19 09:35 08/13/19 06:00 Imaging - Results Ultrasound: Report Reviewed Assessment/Plan impression right hydrocele plan observe nsaid's for mild discomfort will follow-up as outpatient
--- NOTE | 2019-08-13 20:34 | PN.GI ---
GI Progress Note Subjective: No abdominal pain No bleeding States feeling well Had f/u EGD yesterday. Bands x [address] in lower esophagus. gastric polyps States that he has followed with Dr. Chapman @ [facility] for cirrhosis previously - Objective Vital Signs: Vital Signs Temperature 98.1 F 08/13/19 09:00 Pulse Rate 72 08/13/19 10:39 Respiratory Rate 20 08/13/19 10:39 Blood Pressure 103/69 08/13/19 10:39 O2 Sat by Pulse Oximetry (%) 95 08/12/19 21:00 Constitutional: Calm Cardiovascular: Yes: Regular Rate and Rhythm, Murmur (2/6 systolic) Respiratory: Yes: CTA Bilaterally Gastrointestinal Inspection: Yes: Other (Protuberant (small ascites seen on US)) ...Auscultate: Yes: Normoactive Bowel Sounds ...Palpate: Yes: Soft. No: Hepatomegaly, Splenomegaly, Tenderness ...Percussion: No: Tympanitic Edema: Yes Edema: LLE: 1+, RLE: 1+ Neurological: Yes: Alert, Oriented. No: Asterix[employer] Labs: CBC, BMP 08/13/19 09:35 08/13/19 06:00 INR, PTT INR 1.30 (0.83-1.09) H 08/12/19 10:05 Hepatic Panel Total Bilirubin 1.3 mg/dL (0.2-1) H 08/13/19 06:00 AST 27 U/L (15-37) 08/13/19 06:00 ALT 32 U/L (13-61) 08/13/19 06:00 Alkaline Phosphatase 52 U/L (45-117) 08/13/19 06:00 Albumin 2.7 g/dl (3.4-5.0) L 08/13/19 06:00 Problem List - Problems (1) Esophageal varix bleeding Assessment/Plan: No overt bleeding Octreotide has been initiated from Saturday. D/C in AM Nadolol 20mg once daily if BP tolerates. Hold if HR <55 SBP <90. If cannot tolerate beta ekta therapy, will need serial banding sessions. 2g low sodium diet given small ascites on exam and LE edema Can D/C Abx Needs follow-up with transplant pearl peller Dr. Chapman @ [facility] Q 6 month abdominal US to screen for HCC Code(s): I85.01 - ESOPHAGEAL VARICES WITH BLEEDING Qualifiers: Esophageal varices type: secondary Qualified Code(s): I85.11 - Secondary esophageal varices with bleeding
[2019-08-14] MEDS ORDERED: ZOLPIDEM TARTRATE 5 MG TABLET PO ONE ×2 (00:32→22:24)
[2019-08-14 08:51] LABS: BASO % 1.2 % (0-2.0); HEMATOCRIT 25.8 % (35.4-49); HEMOGLOBIN 8.1 GM/dL (11.7-16.9); LYMPH % 31.2 % (8-40); MCHC 31.3 g/dl (32.0-35.9); MEAN CELL VOLUME 73.4 fl (80-96); MEAN PLT VOLUME 9.1 fl (7.5-11.1); MONO % 9.9 % (3.8-10.2); NEUT % 52.7 % (42.8-82.8); PLATELET COUNT 62 K/MM3 (134-434); RBC 3.52 M/mm3 (4.00-5.60); RDW 22.7 % (11.9-15.9); WHITE BLOOD COUNT 3.7 K/mm3 (4.0-10.0)
[2019-08-14 09:22] LABS: ALBUMIN 2.6 g/dl (3.4-5.0); BILIRUBIN,TOTAL 1.8 mg/dL (0.2-1); BLOOD UREA NITROGEN 9.4 mg/dL (7-18); CALCIUM 7.7 mg/dL (8.5-10.1); CREATININE 0.8 mg/dL (0.55-1.3); POTASSIUM 3.4 mmol/L (3.5-5.1); TOT PROT 5.4 g/dl (6.4-8.2)
[2019-08-14] MEDS ORDERED: cefTRIAXone SODIUM 1 GM VIAL ONE (10:12)
[2019-08-14] MEDS ORDERED: DEXTROSE 5%-WATER - 50 ML IVPB ONE (10:13)
[2019-08-14] MEDS: CEFTRIAXONE 1 GM in DEXTROSE 5%-WATER - 50 ML IVPB SCH (10:22)
[2019-08-14] MEDS: PANTOPRAZOLE SODIUM 40 MG VIAL IVPUSH SCH ×2 (10:23→21:31)
[2019-08-14] MEDS ORDERED: POTASSIUM CHLORIDE ORAL LIQUID 20 MEQ/15 ML PO ONE (10:30)
--- NOTE | 2019-08-14 10:55 | PN ---
Progress Note (short form) - Note Progress Note: systolic BP seems to be running at 100. Doubt he will tolerate non selective beta blockade. Will need serial banding for ablation of varices and secondary prophylaxis. Problem List - Problems (1) Esophageal varix bleeding Code(s): I85.01 - ESOPHAGEAL VARICES WITH BLEEDING Qualifiers: Esophageal varices type: secondary Qualified Code(s): I85.11 - Secondary esophageal varices with bleeding
--- NOTE | 2019-08-14 11:11 | PN ---
Progress Note, Physician Chief Complaint: Anemia Esophageal Varices Bleeding Hematemesis History of Present Illness: Previous notes and events reviewed awake and alert NAD Hg 8.1 s/p 1U PRBC transfusion yesterday ocreotide discontinued no bleeding reported - Current Medication List Current Medications: Active Medications Pantoprazole Sodium (Protonix Iv) 40 mg IVPUSH BID SHADI Last Admin: 08/14/19 10:23 Dose: 40 mg - Objective Vital Signs: Vital Signs Temperature 98.4 F 08/13/19 22:00 Pulse Rate 77 08/13/19 22:00 Respiratory Rate 20 08/13/19 22:00 Blood Pressure 100/67 08/13/19 22:00 O2 Sat by Pulse Oximetry (%) 95 08/12/19 21:00 Constitutional: Yes: No Distress, Calm Eyes: Yes: Conjunctiva Clear HENT: Yes: Atraumatic Cardiovascular: Yes: Regular Rate and Rhythm Respiratory: Yes: Regular, CTA Bilaterally Gastrointestinal: Yes: Normal Bowel Sounds, Soft, Distention Musculoskeletal: Yes: WNL Extremities: Yes: WNL Edema: Yes Edema: LLE: Trace, RLE: Trace Neurological: Yes: Alert, Oriented Psychiatric: Yes: Alert, Oriented Labs: CBC, BMP 08/14/19 07:45 08/14/19 07:45 INR, PTT INR 1.30 (0.83-1.09) H 08/12/19 10:05 Microbiology 08/13/19 02:00 Urine - Urine Clean Catch Urine Culture - Final NO GROWTH OBTAINED 08/10/19 03:30 Urine - Urine Clean Catch Urine Culture - Final NO GROWTH OBTAINED Problem List - Problems (1) Dysuria Assessment/Plan: -UA neg -UC neg Code(s): R30.0 - DYSURIA (2) Testicular pain, unspecified Assessment/Plan: -Testicular US shows no evidence of torsion or acute pathology, large right scrotal cyst possibly representing a loculated hydrocele or epidydmal head cyst -Urology on board -pain control Code(s): N50.819 - TESTICULAR PAIN, UNSPECIFIED (3) Anemia Assessment/Plan: -Hg 8.1 -s/p1U PRBC for transfusion -monitor Hg daily -transfuse for Hg <7.0 -GI on board -EGD showed espophageal varices -repeat EGD shows partially eradicated varices, [address], one residual variceal cord without high risk stigmata -will need repeat EGD in 2-3 weeks post discharge, close GI follow up -Pantoprazole -ocreotide discontinued -when discharge will need follow up with liver specialist Dr Chapman @ [facility] -abdominal US q6h Code(s): D64.9 - ANEMIA, UNSPECIFIED (4) Esophageal varix bleeding Assessment/Plan: -GI on board -EGD showed espophageal varices -Pantoprazole -repeat EGD shows partially eradicated varices, [address], one residual variceal cord without high risk stigmata -will need repeat EGD in 2-3 weeks post discharge, close GI follow up Code(s): I85.01 - ESOPHAGEAL VARICES WITH BLEEDING Qualifiers: Esophageal varices type: secondary Qualified Code(s): I85.11 - Secondary esophageal varices with bleeding (5) Hypomagnesemia Assessment/Plan: -resolved -Mag 1.8 Code(s): E83.42 - HYPOMAGNESEMIA Assessment/Plan see problem list dvt ppx if Hg stable will d/c home tomorrow
[2019-08-14 12:31] LABS: ANISOCYTOSIS 1+; PLATELET ESTIMATE DECREASED
--- NOTE | 2019-08-14 15:27 | CONSULT ---
Consultation: REQUESTING PROVIDER: Heme/Onc Service CONSULT REQUEST: We have been asked to medically evaluate this patient for anemia and thrombocytopenia. HISTORY OF PRESENT ILLNESS: Pt is a pleasant 59 y/o M with PMH ?cirrhosis (followed by Dr. Matute at [facility]), HTN, DM who presented to [facility] ED with complaint of vomiting blood. Heme/Onc was called because of anemia and thrombocytopenia. On my interview, pt states he had never had bloody vomit prior to the episode that brought him to the ED. He states he has been followed for his liver problems at [facility], but is unclear as to precisely what workup has been completed. He did mention that he believes he will be going for a transplant, but does not know when. The patient feels well at this time. He continues to have distended belly, swollen legs, and enlarged scrotum, none of which are new findings. He had a single episode of black stool today, which he has never experienced before. Of note, pt admits to poor/absent vision on the right half of his visual field. REVIEW OF SYSTEMS: CONSTITUTIONAL: Absent: fever, chills, diaphoresis, generalized weakness, malaise, loss of appetite, weight change HEENT: Absent: rhinorrhea, nasal congestion, throat pain, throat swelling, difficulty swallowing, mouth swelling, ear pain, eye pain, visual changes CARDIOVASCULAR: peripheral edema Absent: chest pain, syncope, palpitations, irregular heart rate, lightheadedness , RESPIRATORY: Absent: cough, shortness of breath, dyspnea with exertion, orthopnea, wheezing, stridor, hemoptysis GASTROINTESTINAL:abdominal distension, nausea, vomiting, melena, hematemesis Absent: abdominal pain, , diarrhea, constipation, hematochezia GENITOURINARY: Absent: dysuria, frequency, urgency, hesitancy, hematuria, flank pain, genital pain MUSCULOSKELETAL: Absent: myalgia, arthralgia, joint swelling, back pain, neck pain SKIN: Absent: rash, itching, pallor HEMATOLOGIC/IMMUNOLOGIC: Absent: easy bleeding, easy bruising, lymphadenopathy, frequent infections ENDOCRINE: Absent: unexplained weight gain, unexplained weight loss, heat intolerance, cold intolerance NEUROLOGIC: Absent: headache, focal weakness or paresthesias, dizziness, unsteady gait, seizure, mental status changes, bladder or bowel incontinence PSYCHIATRIC: Absent: anxiety, depression, suicidal or homicidal ideation, hallucinations. PHYSICAL EXAMINATION Vital Signs - 24 hr 08/13/19 08/13/19 21:00 22:00 Temperature 98.4 F Pulse Rate 77 Respiratory 20 20 Rate Blood Pressure 100/67 Gen: AAOx3, NAD HEENT: NCAT, PERRL, R ptosis, Eomi, R visual field deficit Neck: supple, no jvd Cardio: rrr, normal s1s2, midsystolic murmur loudest at RUSB and apical area Pulm: cta b/l Abd: distended, soft, nontender, pos BS, pos fluid wave, dullness to percussion 5-10 cm lateral to umbilicus with limited shifting, percussion suggestive of splenomegally Testicular: Enlarged R testicle and scrotum, R inguinal hernia Ext: 1+ edema b/l Laboratory Results - last 24 hr 08/13/19 08/13/19 08/14/19 12:15 22:22 06:23 WBC RBC Hgb Hct MCV MCH MCHC RDW Absolute Neuts (auto) Neutrophils % Lymphocytes % Monocytes % Eosinophils % Basophils % Nucleated RBC % Hypochromia Platelet Estimate Polychromasia Poikilocytosis Anisocytosis Sodium Potassium Chloride Carbon Dioxide Anion Gap BUN Creatinine Est GFR (CKD-EPI)AfAm Est GFR (CKD-EPI)NonAf POC Glucometer 117 125 Random Glucose Calcium Total Bilirubin AST ALT Alkaline Phosphatase Total Protein Albumin Blood Type A POSITIVE Antibody Screen Negative Crossmatch See Detail 08/14/19 08/14/19 07:45 07:45 WBC 3.7 L RBC 3.52 L Hgb 8.1 L Hct 25.8 L MCV 73.4 L MCH 23.0 L MCHC 31.3 L RDW 22.7 H Absolute Neuts (auto) 1.9 Neutrophils % 52.7 D Lymphocytes % 31.2 D Monocytes % 9.9 Eosinophils % 5.0 H D Basophils % 1.2 D Nucleated RBC % 0 Hypochromia 1+ Platelet Estimate Decreased Polychromasia 2+ Poikilocytosis 1+ Anisocytosis 1+ Sodium 138 Potassium 3.4 L Chloride 108 H Carbon Dioxide 25 Anion Gap 5 L BUN 9.4 Creatinine 0.8 Est GFR (CKD-EPI)AfAm 114.13 Est GFR (CKD-EPI)NonAf 98.47 POC Glucometer Random Glucose 104 Calcium 7.7 L Total Bilirubin 1.8 H AST 31 ALT 31 Alkaline Phosphatase 54 Total Protein 5.4 L Albumin 2.6 L Blood Type Antibody Screen Crossmatch Active Medications Generic Name Dose Route Start Last Admin Trade Name Hoa PRN Reason Stop Dose Admin Pantoprazole Sodium 40 mg 08/11/19 22:00 08/14/19 10:23 Protonix Iv IVPUSH 40 mg BID SHADI Administration ASSESSMENT/PLAN: Pt is a pleasant 59 y/o M with PMH ?cirrhosis (followed by Dr. Matute at [facility]), HTN, DM who presented to [facility] ED with complaint of vomiting blood. Heme/Onc was called because of anemia and thrombocytopenia. Liver dysfunction -with portal hypertension, varices and hematemesis -pedal edema -ascites -follows with GI Anemia -very likely due to episode of massive hematemesis/melena -can supplement venofer -fe studies will be unreliable as pt has received PRBCs -will check b12, folate, tsh thrombocytopenia -known liver dysfunction -no indication for plt infusion at this time Hydrocele -f/u with urology Ptosis & Hemianopsia -CT chest -Recommend neuro consult Dispo: We will continue to follow the patient. Thank you for this consultative opportunity. Visit type - Emergency Visit Emergency Visit: No - New Patient This patient is new to me today: Yes Date on this admission: 08/14/19 - Critical Care Critical Care patient: No ATTENDING PHYSICIAN STATEMENT I saw and evaluated the patient. I reviewed the resident's note and discussed the case with the resident. I agree with the resident's findings and plan as documented. SUBJECTIVE: OBJECTIVE: ASSESSMENT AND PLAN:
--- NOTE | 2019-08-14 16:32 | PN ---
Teaching Attending Note Name of Resident: Eulogio Burr ATTENDING PHYSICIAN STATEMENT I saw and evaluated the patient. I reviewed the resident's note and discussed the case with the resident. I agree with the resident's findings and plan as documented. SUBJECTIVE: Patient seen and examined Presented with hematemesis secondary to esophageal varices. Had banding of varices. Had been intubated in ICU . Non smoker, non drinker , no illicit drugs , no industrial exposures Followed previously at [facility] and has had paracentesis in past with removal 8L of fluid. PMH : HBP/DM Last Vital Signs Temp Pulse Resp BP Pulse Ox 98.2 F 70 20 106/78 95 08/14/19 15:38 08/14/19 15:38 08/14/19 15:38 08/14/19 15:38 08/12/19 21:00 HEENT: right ptosis Oropharynx: No thrush, No mucositis Neck: Supple Nodes: Without adenopathy Breasts: Without masses, no gynecomastia Cor: RSR, systolic murmur Lungs: Clear to P&A Abd: ascites Ext:LE edema Skin: No rashes, Integument intact Hydrocele right testes ; circumcised CBC, BMP 08/14/19 07:45 08/14/19 07:45 INR, PTT INR 1.30 (0.83-1.09) H 08/12/19 10:05 Current Medications Generic Name Dose Route Start Last Admin Trade Name Freq PRN Reason Stop Dose Admin Pantoprazole Sodium 40 mg 08/11/19 22:00 08/14/19 10:23 Protonix Iv IVPUSH 40 mg BID SHADI Administration Impression:: Cirrhosis by history Bleeding esophageal varices --s/p banding ptosis- right eye Pancytopenia secondary to portal hypertension and liver disease Hemianopsia hydrocele suggest Ultimate follow up at [facility] with toucher up No hematologic intervention unless bleeding or further fall in Hb/Hct Neurology follow up for hemianopsia CTchest for right ptosis follow up for hydrocele. Monitor CBC GI following OBJECTIVE: ASSESSMENT AND PLAN:
[2019-08-15 08:48] LABS: HEMATOCRIT 25.3 % (35.4-49); HEMOGLOBIN 7.9 GM/dL (11.7-16.9); MCHC 31.3 g/dl (32.0-35.9); MEAN CELL VOLUME 73.5 fl (80-96); MEAN PLT VOLUME 9.8 fl (7.5-11.1); PLATELET COUNT 68 K/MM3 (134-434); RBC 3.44 M/mm3 (4.00-5.60); RDW 23.1 % (11.9-15.9); WHITE BLOOD COUNT 3.7 K/mm3 (4.0-10.0)
[2019-08-15 09:18] LABS: ALBUMIN 2.6 g/dl (3.4-5.0); BILIRUBIN,TOTAL 1.5 mg/dL (0.2-1); BLOOD UREA NITROGEN 7.9 mg/dL (7-18); CREATININE 0.8 mg/dL (0.55-1.3); POTASSIUM 3.7 mmol/L (3.5-5.1); TOT PROT 5.5 g/dl (6.4-8.2)
[2019-08-15] MEDS: PANTOPRAZOLE SODIUM 40 MG VIAL IVPUSH SCH (10:31)
--- NOTE | 2019-08-15 14:19 | DS ---
Physical Examination Vital Signs: Vital Signs Temperature 98.2 F 08/15/19 06:22 Pulse Rate 81 08/15/19 11:00 Respiratory Rate 18 08/15/19 11:00 Blood Pressure 127/81 08/15/19 11:00 O2 Sat by Pulse Oximetry (%) 95 08/12/19 21:00 Findings/Remarks: Laboratory Results - last 24 hr 08/14/19 08/15/19 08/15/19 07:45 00:02 06:44 WBC RBC Hgb Hct MCV MCH MCHC RDW Plt Count 62 L MPV 9.1 Platelet Comment Sl giant platelets Sodium Potassium Chloride Carbon Dioxide Anion Gap BUN Creatinine Est GFR (CKD-EPI)AfAm Est GFR (CKD-EPI)NonAf POC Glucometer 116 107 Random Glucose Calcium Total Bilirubin AST ALT Alkaline Phosphatase Total Protein Albumin 08/15/19 08/15/19 08/15/19 07:07 07:07 13:09 WBC 3.7 L RBC 3.44 L Hgb 7.9 L Hct 25.3 L MCV 73.5 L MCH 23.0 L MCHC 31.3 L RDW 23.1 H Plt Count 68 L MPV 9.8 Platelet Comment Sodium 138 Potassium 3.7 Chloride 106 Carbon Dioxide 26 Anion Gap 6 L BUN 7.9 Creatinine 0.8 Est GFR (CKD-EPI)AfAm 114.13 Est GFR (CKD-EPI)NonAf 98.47 POC Glucometer 163 Random Glucose 94 Calcium 8.0 L Total Bilirubin 1.5 H AST 28 ALT 30 Alkaline Phosphatase 56 Total Protein 5.5 L Albumin 2.6 L Active Medications Generic Name Dose Route Start Last Admin Trade Name Freq PRN Reason Stop Dose Admin Pantoprazole Sodium 40 mg 08/11/19 22:00 08/15/19 10:31 Protonix Iv IVPUSH 40 mg BID SHADI Administration Microbiology 08/13/19 02:00 Urine - Urine Clean Catch Urine Culture - Final NO GROWTH OBTAINED 08/10/19 03:30 Urine - Urine Clean Catch Urine Culture - Final NO GROWTH OBTAINED Constitutional: Yes: No Distress, Calm Eyes: Yes: Conjunctiva Clear HENT: Yes: Atraumatic Neck: Yes: Supple Cardiovascular: Yes: Regular Rate and Rhythm Respiratory: Yes: Regular, CTA Bilaterally Gastrointestinal: Yes: Normal Bowel Sounds, Soft Musculoskeletal: Yes: WNL Extremities: Yes: WNL Edema: No Neurological: Yes: Alert, Oriented Psychiatric: Yes: Alert, Oriented Labs: CBC, BMP 08/15/19 07:07 08/15/19 07:07 Discharge Summary Problems reviewed: Yes Reason For Visit: VOMITING BLOOD Current Active Problems Abdominal pain (Acute) Anemia (Acute) Dysuria (Acute) Endotracheally intubated (Acute) Esophageal varix bleeding (Acute) Hematemesis (Acute) Hypomagnesemia (Acute) Testicular pain, unspecified (Acute) Hospital Course: 59 year old male with PMHX of HTN, DM, cirrhosis 2/2 [place], according to ED presenting with 3 episodes of hematemesis that started 1hour prior to arrival. Patient was feeling abdominal discomfort and bloating but was able to tolerate dinner. After dinner, however, further discomfort and had 3 consecutive hematemesis episodes of large volume bright red blood without clots. Patient reported sharp epigastric abdominal pain that radiates to the rest of his abdomen, vomiting. Patient reported ALVES and lightheadedness after hematemesis. Patient denied any chest pain, SOB, syncope. Patient reports never having hematemesis before, but did receive extensive workup for his cirrhosis last year with Dr Chapman at [facility]. Dr Chapman contacted in ED and we were notified that patient is MELD 6 and was recommended for transplant. He also states at the time of the EGD in 12/2017 there were 3 columns of nonbleeding and stable varices. Patient then missed several appointments and was lost to followup. Patient followed by GI as inpatient and emergent EGD done. Patient was intubated in ICU and started on ocreotide drip. EGD showed espophageal varices. Patient was eventually extubated with no ad Started on Pantoprazole IVP. Repeat EGD shows partially eradicated varices, [address], one residual variceal cord without high risk stigmata. Will need repeat EGD in 2-3 weeks post discharge, close GI follow up Condition: Stable - Instructions Diet, Activity, Other Instructions: follow up with PMD on Saturday for lab work to check Hg follow up with GI Dr Flowers, will need repeat EGD in 2-3 weeks follow up [facility] U[facility] Dr Sales for testicular cyst follow up with Dr Chapman at [facility] for management of Liver Cirrhosis [phone] at [address] [place] [address] return to ER if develop severe pain, respiratory distress, chest pain, altered mental status, rectal bleeding or coughing up blood Referrals: Kierra Ibarra MD [Primary Care Provider] - Angel Flowers DO [Staff Physician] - Ayad Sales MD [Staff Physician] - Disposition: HOME - Home Medications Comprehensive Discharge Medication List: Ambulatory Orders Pantoprazole Sodium [Protonix -] 40 mg PO DAILY #30 tablet.ec 08/15/19
[2019-08-15 15:31] VITALS: BP 109/74; PULSE 73; TEMP 98.4
[2019-08-15] MEDS ORDERED: PANTOPRAZOLE 40 MG TABLET (FP) PO SCH (19:00)
== END 2019-08-15 18:52 | disposition home or self-care (01) | DRG 950 ==
LOC: JER 20:42 → JICU 08-10 00:35 → J6S 08-11 13:30
PROVIDERS: ADMIT Family Medicine; ATTEND Family Medicine
PROC: 5A1945Z Respiratory Ventilation, 24-96 Consecutive Hours (ICD-10-PCS; 2019-08-10)
PROC: 0BH17EZ Insertion of Endotracheal Airway into Trachea, Via Natural or Artificial Opening (ICD-10-PCS; 2019-08-10)
PROC: 30233N1 Transfusion of Nonautologous Red Blood Cells into Peripheral Vein, Percutaneous Approach (ICD-10-PCS; 2019-08-10)
PROC: 06L34CZ Occlusion of Esophageal Vein with Extraluminal Device, Percutaneous Endoscopic Approach (ICD-10-PCS; principal; 2019-08-10 00:30)
PROC: 0DJ08ZZ Inspection of Upper Intestinal Tract, Via Natural or Artificial Opening Endoscopic (ICD-10-PCS; 2019-08-12)
DX: K76.6 Portal hypertension (principal); I85.11 Secondary esophageal varices with bleeding; R10.9 Unspecified abdominal pain; K92.0 Hematemesis; N43.3 Hydrocele, unspecified; D64.9 Anemia, unspecified; H02.409 Unspecified ptosis of unspecified eyelid; H53.47 Heteronymous bilateral field defects; K74.69 Other cirrhosis of liver; D69.6 Thrombocytopenia, unspecified; D61.818 Other pancytopenia; E83.42 Hypomagnesemia; R18.8 Other ascites
CPT/HCPCS: 31500; 36415; 36430; 36511; 71045-TC-FY; 74019-TC-FY; 76700-TC; 76870-TC; 80048; 80053; 81003; 82140; 82272; 82550; 82962; 83690; 83735; 84100; 84484; 85025; 85027; 85610; 85730; 86850; 86900; 86901; 86922; 87086; 93005; 93010; 99283-25; P9038; P9058

== ENCOUNTER 2022-08-30 20:33 | Emergency (ER) | payer OTHER ==
[2022-08-30 20:47] VITALS: BP 197/98; PULSE 78; RESP 20; TEMP 98.1; BMI 30.3
[2022-08-31 00:15] LABS: BASO % 0.7 % (0-2.0); EOS % 1.7 % (0-4.5); HEMATOCRIT 38.1 % (35.4-49); HEMOGLOBIN 13.1 GM/dL (11.7-16.9); LYMPH % 20.9 % (8-40); MCH 30.1 pg (25.7-33.7); MCHC 34.2 g/dl (32.0-35.9); MEAN CELL VOLUME 87.9 fl (80-96); MEAN PLT VOLUME 8.3 fl (7.5-11.1); MONO % 8.6 % (3.8-10.2); NEUT % 68.1 % (42.8-82.8); PLATELET COUNT 87 10^3/uL (134-434); RBC 4.34 M/mm3 (4.00-5.60); RDW 17.5 % (11.9-15.9); WHITE BLOOD COUNT 4.6 K/mm3 (4.0-10.0)
[2022-08-31] MEDS ORDERED: KETOROLAC TROMETHAMINE 60 MG/2 ML VIAL IM ONE (00:36)
[2022-08-31] MEDS ORDERED: amLODIPine BESYLATE 5 MG TABLET (FP) PO ONE (00:36)
[2022-08-31 00:39] LABS: CALCIUM 8.5 mg/dL (8.5-10.1)
[2022-08-31 00:41] LABS: ALBUMIN 2.6 g/dl (3.4-5.0); BLOOD UREA NITROGEN 10.4 mg/dL (7-18)
[2022-08-31 00:43] LABS: CREATININE 0.9 mg/dL (0.55-1.3)
[2022-08-31 00:45] LABS: BILIRUBIN,TOTAL 1.9 mg/dL (0.2-1); TOT PROT 6.2 g/dl (6.4-8.2)
[2022-08-31 00:48] LABS: N-TERMINAL BNP 23.7 pg/ml (5-125)
[2022-08-31] MEDS ORDERED: amLODIPine BESYLATE 5 MG TABLET (FP) ONE (01:43)
[2022-08-31] MEDS ORDERED: KETOROLAC TROMETHAMINE 60 MG/2 ML VIAL ONE (01:43)
[2022-08-31] MEDS ORDERED: SULFAMETHOXAZOLE/TRIMETHOPRIM 800MG/160MG D.S. TABLET PO ONE (02:38)
[2022-08-31 03:20] LABS: INR 1.55 (0.83-1.09); PROTHROMBIN TIME (PATIENT) 17.9 SEC (9.7-13.0)
[2022-08-31 03:23] LABS: ACTIVATED PTT 43.1 SECONDS (25.2-36.5)
== END 2022-08-31 04:28 | disposition home or self-care (01) ==
LOC: JER 20:33
PROC: 3E0233Z Introduction of Anti-inflammatory into Muscle, Percutaneous Approach (ICD-10-PCS; principal; 2022-08-30)
DX: R22.41 Localized swelling, mass and lump, right lower limb (principal)
CPT/HCPCS: 36415; 73562-TC-RT-FY; 80053; 83880; 85025; 85610; 85730; 93971-TC; 96372; 99285-25